=== PATIENT | female | born 1975 | race Caucasian/White ===

== ENCOUNTER 2019-10-12 16:33 | Emergency (ER) | payer MEDICAID, SELFPAY ==
[2019-10-12 16:33] VITALS: BP 123/80; PULSE 91; RESP 15; TEMP 36.8; O2SAT 95; BMI 35.4
--- NOTE | 2019-10-12 16:59 | W.ED.FALL ---
HPI - Fall General: Chief Complaint: Fall Stated Complaint: fall Time Seen by Provider: 10/12/19 16:58 Source: patient and family Mode of arrival: ambulatory Limitations: other (cognitive delay) History of Present Illness: HPI Narrative: pt was with family at [employer] and was reaching on top shelf when on her tippy toes when her L ankle popped and gave out causing her to fall backwards; reports striking her head but no LOC; she complains currently of L ankle pain and neck pain MD complaint: fall Onset (ago): hour(s) Fall from: standing Fall witnessed: yes, by family Place fall occurred: other (grocery store) Loss of consciousness: None Symptoms prior to fall: none Context: other Location of injury: neck Location of injury - extremities: Left: ankle Associated symptoms-after fall: Reports no associated symptoms and neck pain; Denies abdominal pain, chest pain, headache(s) or lightheadedness Review of Systems Const: Denies: fever or chills Card: Denies: chest pain, palpitations, lightheadedness or syncope Resp: Denies: shortness of breath GI: Denies: abdominal pain, nausea, vomiting or diarrhea Musc: Reports: neck pain and joint pain (L ankle) Skin/Breast: Denies: rash Neuro: Denies: headache Psych: Denies: anxiety, depression, visual hallucinations, auditory hallucinations, suicidal ideation or homicidal ideation PFSH ED PFSH: Statuses (acute, chronic, etc) shown below reflect problem list status as previously entered and may not be historically accurate Social History Smoking and tobacco status: never smoked Physical Exam Const: COMMON NORMALS: no apparent distress, oriented x3 and alert GENERAL APPEARANCE: cooperative HENMT: COMMON NORMALS: normocephalic, head/scalp atraumatic, external ears normal, EAC's normal, TM's normal bilaterally and external nose normal HEAD & SCALP: normal to inspection, normocephalic and atraumatic FACE & SINUS: normal facial exam NOSE: external nose normal EXTERNAL EAR: Yes external ears normal EXTERNAL AUDITORY CANAL: EAC's normal TYMPANIC MEMBRANE: TM's normal bilaterally MOUTH: oral and palatal mucosa normal THROAT: posterior oropharynx normal, tonsils normal and uvula midline Eye: COMMON NORMALS: PERRL and EOMs intact bilaterally PUPIL: Yes PERRL Neck/C-Spine: CERVICAL SPINE: Yes collar present (ROM not performed; TTP to mid cervical; no step offs ) Resp: COMMON NORMALS: normal respiratory effort, no retractions, no use of accessory muscles and clear to auscultation bilaterally AUSCULTATION: clear to auscultation bilaterally Cardio: COMMON NORMALS: regular rate and regular rhythm RATE: regular rate RHYTHM: regular rhythm GI: COMMON NORMALS: normal to inspection, nondistended, normoactive bowel sounds, soft to palpation, non-tender, no hepatosplenomegaly and no masses PALPATION: Yes soft and Yes no hepatosplenomegaly Back/Pelvis: COMMON NORMALS: thoracic and lumbar spine normal to inspection Extremity: GENERAL: Yes normal exam except as noted LEFT LOWER EXTREMITY: Yes ankle joint (TTP of lateral malleolus ) Neuro: COMMON NORMALS: oriented x3 SENSORIUM/ORIENTATION: Yes alert Course Vital Signs: Vital signs: Vital Signs Temperature 98.3 F 10/12/19 16:33 Pulse Rate 91 10/12/19 16:33 Respiratory Rate 15 10/12/19 16:33 Blood Pressure 123/80 10/12/19 16:33 Pulse Oximetry 95 10/12/19 16:33 MDM - Fall Imaging Data^: CT Head: Radiologist's impression: [place] [address] CT Scan Report Signed Patient: Marialuisa Diaz MR#: [id number] : 1975 Acct:[id number] Age/Sex: 43 / F ADM Date: 10/12/19 Loc: ER Attending Dr: Ordering Physician: Magy Partida Date of Service: 10/12/19 Procedure(s): CT head wo con* [id number] Accession Number(s): [id number] cc: Magy Partida PROCEDURE INFORMATION: Exam: CT Head Without Contrast Exam date and time: 10/12/2019 5:27 PM Age: 43 years old Clinical indication: Injury or trauma; Fall; Initial encounter; Blunt trauma (contusions or hematomas) TECHNIQUE: Imaging protocol: Computed tomography of the head without contrast. Total DLP: 775.94 mGy-cm Radiation optimization: All CT scans at this facility use at least one of these dose optimization techniques: automated exposure control; mA and/or kV adjustment per patient size (includes targeted exams where dose is matched to clinical indication); or iterative reconstruction. COMPARISON: CT head wo con* [id number] 05/26/2018 9:59 PM FINDINGS: Brain: Normal. No hemorrhage. Unremarkable white matter. No mass effect. Ventricles: Normal. No ventriculomegaly. Bones/joints: Unremarkable. No acute fracture. Sinuses: Visualized sinuses are unremarkable. No fluid levels. Mastoid air cells: Visualized mastoid air cells are well aerated. Soft tissues: Unremarkable. CT/CT head wo con* [id number] IMPRESSION: No acute intracranial abnormality. Radiation Dose CTDIVOL = (mGy): DLP = 775.94 (mGy-cm) Dictated By: Fili Bae MD 10/12/191832 Signed By: Fili Bae MD 10/12/191833 CT cervical: Radiologist's impression: [place] [address] CT Scan Report Signed Patient: Marialuisa Diaz MR#: [id number] : 1975 Acct:[id number] Age/Sex: 43 / F ADM Date: 10/12/19 Loc: ER Attending Dr: Ordering Physician: Magy Partida Date of Service: 10/12/19 Procedure(s): CT cervical spin wo con* [id number] Accession Number(s): [id number] cc: Magy Partida PROCEDURE INFORMATION: Exam: CT Cervical Spine Without Contrast Exam date and time: 10/12/2019 5:27 PM Age: 43 years old Clinical indication: Injury or trauma; Fall; Initial encounter; Blunt trauma TECHNIQUE: Imaging protocol: Computed tomography images of the cervical spine without contrast. Total DLP: 675.5 mGy-cm Radiation optimization: All CT scans at this facility use at least one of these dose optimization techniques: automated exposure control; mA and/or kV adjustment per patient size (includes targeted exams where dose is matched to clinical indication); or iterative reconstruction. COMPARISON: CT Cervical Spine wo* [id number] 05/23/2018 8:08 PM FINDINGS: Bfvd-di-tpmwcvfy degenerative changes are seen in the lower cervical spine. No cervical spine fracture is seen. Spinal alignment is normal. CT/CT cervical spin wo con* [id number] IMPRESSION: No cervical spine fracture. Radiation Dose CTDIVOL = (mGy): DLP = 675.5 (mGy-cm) Dictated By: Fili Bae MD 10/12/191836 Signed By: Fili Bae MD 10/12/191837 L ankle: Radiologist's impression: [address] [address] XRay Report Signed Patient: Marialuisa Diaz MR#: [id number] : 1975 Acct:[id number] Age/Sex: 43 / F ADM Date: 10/12/19 Loc: ER Attending Dr: Ordering Physician: Magy Partida Date of Service: 10/12/19 Procedure(s): XR ankle LT min 3V* [id number] Accession Number(s): [id number] cc: Magy Partida PROCEDURE INFORMATION: Exam: XR Left Ankle Exam date and time: 10/12/2019 5:26 PM Age: 43 years old Clinical indication: Injury or trauma; Fall; Initial encounter; Blunt trauma; Ankle; Left TECHNIQUE: Imaging protocol: XR Left ankle. Views: 3 or more views. COMPARISON: CR Ankle 3 views, LEFT* [id number] 04/16/2019 1:52 PM FINDINGS: Bones/joints: No fracture or dislocation. Soft tissues: Mild soft tissue swelling is seen in the lateral ankle. XR/XR ankle LT min 3V* [id number] IMPRESSION: No fracture or dislocation. Dictated By: Fili Bae MD 10/12/191837 Signed By: Fili Bae MD 10/12/191838 Discharge Plan Discharge Patient Disposition: Home, Self-Care Clinical Impression: Acute neck pain Ankle sprain Qualifiers: Encounter type: initial encounter Involved ligament of ankle: unspecified ligament Laterality: left Qualified Code(s): S93.402A - Sprain of unspecified ligament of left ankle, initial encounter Fall Qualifiers: Encounter type: initial encounter Qualified Code(s): W19.XXXA - Unspecified fall, initial encounter Condition: Stable Discharge Orders: Discharge Order (Routine); Ordered 10/12/19 Ordered By: Magy Partida Referrals: [facility] [Other] Minda Mendosa [Primary Care Provider] - Discharge Activity: Increase activity as tolerated Activity Restrictions/Additional Instructions: Follow up with primary care in a week for continued pain Coding Level of Care Code 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
--- NOTE | 2019-10-12 17:10 | XRR_ITS ---
PROCEDURE INFORMATION: Exam: XR Left Ankle Exam date and time: 10/12/2019 5:26 PM Age: 43 years old Clinical indication: Injury or trauma; Fall; Initial encounter; Blunt trauma; Ankle; Left TECHNIQUE: Imaging protocol: XR Left ankle. Views: 3 or more views. COMPARISON: CR Ankle 3 views, LEFT* [id number] 04/16/2019 1:52 PM FINDINGS: Bones/joints: No fracture or dislocation. Soft tissues: Mild soft tissue swelling is seen in the lateral ankle. XR/XR ankle LT min 3V* [id number] IMPRESSION: No fracture or dislocation.
--- NOTE | 2019-10-12 17:10 | CTR_ITS ---
PROCEDURE INFORMATION: Exam: CT Cervical Spine Without Contrast Exam date and time: 10/12/2019 5:27 PM Age: 43 years old Clinical indication: Injury or trauma; Fall; Initial encounter; Blunt trauma TECHNIQUE: Imaging protocol: Computed tomography images of the cervical spine without contrast. Total DLP: 675.5 mGy-cm Radiation optimization: All CT scans at this facility use at least one of these dose optimization techniques: automated exposure control; mA and/or kV adjustment per patient size (includes targeted exams where dose is matched to clinical indication); or iterative reconstruction. COMPARISON: CT Cervical Spine wo* [id number] 05/23/2018 8:08 PM FINDINGS: Lvej-it-qmzwkjez degenerative changes are seen in the lower cervical spine. No cervical spine fracture is seen. Spinal alignment is normal. CT/CT cervical spin wo con* [id number] IMPRESSION: No cervical spine fracture. Radiation Dose CTDIVOL = (mGy): DLP = 675.5 (mGy-cm)
--- NOTE | 2019-10-12 17:10 | CTR_ITS ---
PROCEDURE INFORMATION: Exam: CT Head Without Contrast Exam date and time: 10/12/2019 5:27 PM Age: 43 years old Clinical indication: Injury or trauma; Fall; Initial encounter; Blunt trauma (contusions or hematomas) TECHNIQUE: Imaging protocol: Computed tomography of the head without contrast. Total DLP: 775.94 mGy-cm Radiation optimization: All CT scans at this facility use at least one of these dose optimization techniques: automated exposure control; mA and/or kV adjustment per patient size (includes targeted exams where dose is matched to clinical indication); or iterative reconstruction. COMPARISON: CT head wo con* [id number] 05/26/2018 9:59 PM FINDINGS: Brain: Normal. No hemorrhage. Unremarkable white matter. No mass effect. Ventricles: Normal. No ventriculomegaly. Bones/joints: Unremarkable. No acute fracture. Sinuses: Visualized sinuses are unremarkable. No fluid levels. Mastoid air cells: Visualized mastoid air cells are well aerated. Soft tissues: Unremarkable. CT/CT head wo con* [id number] IMPRESSION: No acute intracranial abnormality. Radiation Dose CTDIVOL = (mGy): DLP = 775.94 (mGy-cm)
[2019-10-12 19:06] VITALS: BP 107/77; PULSE 73; RESP 16; O2SAT 97
== END 2019-10-12 18:58 | disposition home or self-care (01) ==
PROVIDERS: Emergency Provider Physician Assistant; PCP Nurse Practitioner Family
DX: S93.402A Sprain of unspecified ligament of left ankle, initial encounter (principal); M54.2 Cervicalgia; W18.30XA Fall on same level, unspecified, initial encounter; Y92.512 Supermarket, store or market as the place of occurrence of the external cause
CPT/HCPCS: 70450; 72125; 73610; 99282

== ENCOUNTER → 2019-11-20 12:41 | Outpatient (BNVA) | payer MEDICAID, SELFPAY | PROVIDERS: PCP Nurse Practitioner Family; Visit Provider Nurse Practitioner | DX: F63.81 Intermittent explosive disorder (principal); R41.83 Borderline intellectual functioning; F17.210 Nicotine dependence, cigarettes, uncomplicated | CPT/HCPCS: 99213 ==

== ENCOUNTER 2019-12-09 15:08 | Emergency (ER) | payer MEDICAID, SELFPAY | END 2019-12-09 19:48 | disposition admitted as inpatient to this hospital (09) | LOC: ER 01-07 12:08 | PROVIDERS: Emergency Provider Family Medicine; PCP Nurse Practitioner Family | DX: Z01.89 Encounter for other specified special examinations (principal) ==

== ENCOUNTER 2019-12-09 15:08 | Emergency (ER) | payer MEDICAID, SELFPAY | END 2019-12-09 19:48 | disposition admitted as inpatient to this hospital (09) | LOC: ER 01-07 12:16 | PROVIDERS: Emergency Provider Family Medicine; PCP Nurse Practitioner Family | DX: Z01.89 Encounter for other specified special examinations (principal) | CPT/HCPCS: 36415; 80053; 80306; 80307; 81001; 81025; 83690; 84443; 85025; 96372; 99282; 99285; J2060; J3486 ==

== ENCOUNTER 2019-12-09 15:08 | Inpatient (IN) | payer MEDICAID, SELFPAY ==
[2019-12-09 15:13] VITALS: BP 116/81; PULSE 106; RESP 25; TEMP 36.8; O2SAT 97
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
[2019-12-09 15:28] LABS: Basophils % 0.2 %; Eosinophils # 0.1 10^3/uL (0.0-0.8); Eosinophils % 0.7 %; Hemoglobin 13.1 g/dL (11.5-15.3); Lymphocytes # 1.9 10^3/uL (0.8-4.8); Lymphocytes % 23.1 %; Mean Corpuscular Hemoglobin 29.4 pg (28.0-34.0); Mean Corpuscular Volume 91.9 fL (81-99); Mean Platelet Volume 10.2 fL (7.4-10.4); Monocytes # 0.5 10^3/uL (0.2-0.9); Monocytes % 6.7 %; Neutrophils # 5.6 10^3/uL (1.8-7.7); Neutrophils % 69.1 %; Nucleated Red Blood Cells % 0 %; Platelet Count 290 10^3/cmm (130-400); Red Blood Count 4.46 10^6/uL (4.1-5.3); Red Cell Distribution Width 13.2 % (12.1-15.1); White Blood Count 8.1 10^3/uL (4.0-10.0)
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
[2019-12-09 15:59] LABS: Alanine Aminotransferase 16 U/L (0-33); Albumin Level 3.5 g/dL (3.5-5.2); Alkaline Phosphatase 154 IU/L (35-105); Anion Gap 18.2 (5-19); Aspartate Amino Transferase 22 U/L (0-32); Blood Urea Nitrogen 6 mg/dL (6-20); Calcium 9.6 mg/dL (8.5-10.5); Carbon Dioxide 20 mmol/L (22-29); Chloride 98 mmol/L (98-107); Globulin 3.6 g/dL (1.3-4.6); Glucose 131 mg/dL (65-115); Lipase 18 U/L (13-60); Potassium 4.2 mmol/L (3.5-5.1); Sodium 132 mmol/L (136-145); Total Bilirubin 0.2 mg/dL (0.15-1.2); Total Protein 7.1 g/dL (6.6-8.7)
[2019-12-09 16:14] LABS: HCG Qualitative Urine. Negative (Negative)
[2019-12-09 16:33] LABS: Thyroid Stimulating Hormone 0.61 uIU/mL (0.27-4.20)
[2019-12-09] MEDS: LORazepam 2 mg/mL INJ 1 mL IM (16:38)
[2019-12-09 16:49] LABS: Acetaminophen < 5.0 ug/mL (10-30); Alcohol Level < 10 mg/dL (0-10); Salicylate < 0.3 mg/dL (3-10)
[2019-12-09 17:04] LABS: Bilirubin Urine Neg (NEGATIVE); Blood Urine Neg (Negative); Glucose Urine UA Norm (Normal); Ketones Urine Negative (Negative); Leukocyte Esterase Urine Negative (Negative); Nitrate Urine Negative (Negative); Protein Urine Neg (Negative); Specific Gravity, Urine 1.005 (1.005-1.030); Urine Appearance SL Hazy (CLEAR); Urine Color Yellow (Yellow); Urobilinogen Urine Norm (Negative); pH Urine 6 (5-7)
[2019-12-09 17:05] LABS: Add Urine Microscopic? YES
[2019-12-09 17:06] LABS: Bacteria Urine TRACE; Hyaline Casts Urine 0-4; WBC Urine 0-4 /hpf (0-5)
[2019-12-09] MEDS: ziprasidone 20 mg/mL SDV IM (17:22)
[2019-12-09 17:41] LABS: Amphetamines Screen Urine Negative (Negative); Barbiturates Screen Urine Negative (Negative); Benzodiazepines Screen Urine Negative (Negative); Cocaine Screen Urine Negative (Negative); Opiate Screen Urine Negative (Negative); PCP Screen Urine Negative (Negative); THC Screen Urine Negative (Negative)
--- NOTE | 2019-12-09 19:00 | PC.NURSE ---
report received from BIJU Gray and care transferred to BIJU Garcia
--- NOTE | 2019-12-09 19:10 | PC.NURSE ---
tried to call report to [facility] but was told the nurse was not around and they would call me back
[2019-12-09 19:37] VITALS: BP 128/104; PULSE 74; RESP 16; O2SAT 96
[2019-12-09] MEDS: mirtazapine 15 mg Tablet PO (20:43)
[2019-12-09] MEDS: CLONazepam 1 mg Tablet PO (20:43)
[2019-12-09] MEDS: nicotine 2 mg Gum BUCCAL (20:47)
[2019-12-09 21:57] VITALS: BP 100/70; PULSE 90; RESP 20; TEMP 36.4; O2SAT 97
[2019-12-10 06:00] VITALS: BP 100/65; PULSE 91; RESP 20; TEMP 36.5; O2SAT 99
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
[2019-12-10] MEDS: haloperidol 5 mg Tablet PO ×2 (13:01→16:40)
[2019-12-10] MEDS: CLONazepam 1 mg Tablet PO (13:01)
--- NOTE | 2019-12-10 13:53 | PC.NURSE ---
PATIENT YELLING DOWN THE CORTES, TRYING TO GET INTO THE NURSES STATION, STATING I JUST WANT TO SEE MY MOM FOR MY BIRTHDAY TUESDAY! PATIENT IS MENTALLY DISABLED, REDIRECTED AND MEDICATED WITH CLONAZEPAM 1MG AND HALDOL 5MG PO. PATIENT WAS ABLE TO BE DE-ESCALATED AND TOOK MEDICATION WITHOUT DIFFICULTY. WILL CONT TO MONITOR,SUPPORT AND RE-DIRECT NEEDED.
[2019-12-10 14:00] VITALS: RESP 20
--- NOTE | 2019-12-10 15:36 | PC.NURSE ---
PRN EFFECTIVE. PATIENT. PATIENT HAS CALMED AND IS INTERACTING WELL WITH STAFF AND PEERS. WILL CONT TO MONITOR
[2019-12-10] MEDS: nicotine 2 mg Gum BUCCAL (16:40)
--- NOTE | 2019-12-10 17:02 | PC.NURSE ---
Patient refused vital signs.
[2019-12-10] MEDS: metoprolol tartrate 25 mg Tablet PO (17:27)
[2019-12-10] MEDS: benztropine 1 mg Tablet PO (17:27)
[2019-12-10] MEDS: escitalopram 10 mg Tablet 20 MG PO (17:27)
[2019-12-10] MEDS: lurasidone 80 mg Tablet 160 MG PO (17:28)
[2019-12-10] MEDS: levothyroxine 50 mcg Tablet PO (17:28)
[2019-12-10 21:49] VITALS: RESP 16
[2019-12-11] MEDS: mirtazapine 15 mg Tablet PO ×2 (00:30→21:30)
[2019-12-11 06:00] VITALS: BP 118/86; PULSE 75; RESP 17; TEMP 36.7; O2SAT 98
[2019-12-11] MEDS: lurasidone 80 mg Tablet 160 MG PO (09:31)
[2019-12-11] MEDS: benztropine 1 mg Tablet PO ×2 (09:31→17:40)
[2019-12-11] MEDS: levothyroxine 50 mcg Tablet PO (09:31)
[2019-12-11] MEDS: escitalopram 10 mg Tablet 20 MG PO (09:31)
[2019-12-11] MEDS: metoprolol tartrate 25 mg Tablet PO ×2 (09:31→17:40)
[2019-12-11] MEDS: haloperidol 5 mg Tablet PO ×2 (11:30→17:40)
[2019-12-11] MEDS: CLONazepam 0.5 mg Tablet PO (11:30)
--- NOTE | 2019-12-11 11:30 | PC.NURSE ---
PRN HALDOL HALDOL 5MG PO FOR AGITATION. WILL CONTINUE TO MONITOR FOR MEDICATION EFFECTIVENESS.
--- NOTE | 2019-12-11 11:30 | PC.NURSE ---
PRN KLONOPIN KLONOPIN 0.5MG PO FOR ANXIETY. WILL CONTINUE TO MONITOR FOR MEDICATION EFFECTIVENESS.
--- NOTE | 2019-12-11 12:30 | PC.NURSE ---
PRN AMBAR FOLLOW UP MEDICATION SOMEWHAT EFFECTIVE. PATIENT STILL HAS SOME ANXIETY.
--- NOTE | 2019-12-11 12:30 | PC.NURSE ---
PRN HALDOL FOLLOW UP MEDICATION SOMEWHAT EFFECTIVE. PATIENT STILL HAS OUTBURST OF AGITATION.
--- NOTE | 2019-12-11 12:41 | P.PN_ITS ---
Subjective NPU Subjective: Interval history: Marialuisa presents today endorsing desire to go home and not be put in a shelter. We discussed the fact that we would work with her and her guardian to find the appropriate discharge plan. We reviewed a documented this morning given by her guardian, they gave an accounting of her placement history going back to 2001. We discussed the importance of her managing her behaviors and the fact that we are making adjustments to medication to try to assist her in handling stressful situations. She is eating and sleeping well. Mental Status Exam MSE Comments: This is an obese white female with adequate dress limited grooming and eye contact. No abnormal movements. No dentition. Mostly cooperative with exam and occasional mild distress. Speech was childlike and decreased rate and volume. Mood described as I want to go home, affect shy. Thought process linear. Thought content: Patient denied any suicidal or homicidal ideation, there were no delusions reported or noted, she denied any auditory visual hallucinations. Her cognitive and intellectual abilities are clearly delayed and impaired. Attention and concentration were intact and memory was unreliable but none were formally tested. She is alert and oriented x3. Insight and judgment are limited. And impulse control is limited. Vitals/I&O/Wt Last Vital Signs Temp 98.0 F 12/11/19 06:00 Pulse 75 12/11/19 06:00 Resp 17 12/11/19 06:00 BP 118/86 12/11/19 06:00 Pulse Ox 98 12/11/19 06:00 Weight last 48 hrs Weight 82.024 kg Home Medications benztropine 1 mg tablet 1 mg PO BID #60 tab 11/20/19 [Rx Confirmed 12/09/19] clonazepam 0.5 mg tablet 0.5 mg PO BID PRN #60 tab 11/20/19 [Rx Confirmed 12/09/19] escitalopram oxalate 20 mg tablet 20 mg PO DAILY #30 tab 11/20/19 [Rx Confirmed 12/09/19] lacosamide 100 mg tablet 100 mg PO BID 11/20/19 [History Confirmed 12/09/19] lurasidone 80 mg tablet 160 mg PO DAILY #30 tab 11/20/19 [Rx Confirmed 12/09/19] metoprolol tartrate 25 mg tablet 25 mg PO BID 11/20/19 [History Confirmed 12/09/19] Remeron 15 mg PO BEDTIME 12/09/19 [History Confirmed 12/09/19] levothyroxine 50 mcg PO DAILY 12/09/19 [History Confirmed 12/09/19] magnesium 500 mg PO DAILY 12/09/19 [History Confirmed 12/09/19] Active Medications Acetaminophen (Tylenol) 650 mg PO Q4H PRN PRN Reason: MILD PAIN Benztropine Mesylate (Cogentin) 1 mg PO BID PRN PRN Reason: Mild Extrapyramidal symptoms Benztropine Mesylate (Cogentin) 1 mg PO BID [facility] Last Admin: 12/11/19 09:31 Dose: 1 mg Documented by: Camphor/Menthol/Phenol (Blistex) 1 applic TOPICAL Q1H PRN PRN Reason: DRYNESS Clonazepam (Klonopin) 0.5 mg PO BID PRN PRN Reason: anxiety Last Admin: 12/11/19 11:30 Dose: 0.5 mg Documented by: Diphenhydramine HCl (Benadryl) 50 mg IM ONCE PRN PRN Reason: Severe Extrapyramidal Symptoms Diphenhydramine HCl (Benadryl) 50 mg IM Q4H PRN PRN Reason: Severe Aggression Escitalopram Oxalate (Lexapro) 20 mg PO DAILY [facility] Last Admin: 12/11/19 09:31 Dose: 20 mg Documented by: Haloperidol (Haldol) 5 mg PO Q4H PRN PRN Reason: AGITATION Last Admin: 12/11/19 11:30 Dose: 5 mg Documented by: Haloperidol (Haldol) 5 mg PO BID [facility] Haloperidol Lactate (Haldol Inj) 5 mg IM Q4H PRN PRN Reason: Severe Aggression Hydroxyzine Pamoate (Vistaril) 50 mg PO Q6H PRN PRN Reason: ANXIETY Levothyroxine Sodium (Synthroid) 50 mcg PO DAILY [facility] Last Admin: 12/11/19 09:31 Dose: 50 mcg Documented by: Loperamide HCl (Imodium Capsule) 2 mg PO Q6H PRN PRN Reason: DIARRHEA Lorazepam (Ativan) 2 mg IM Q4H PRN PRN Reason: Severe Aggression Lurasidone HCl (Latuda) 160 mg PO DAILY [facility] Last Admin: 12/11/19 09:31 Dose: 160 mg Documented by: Metoprolol Tartrate (Lopressor) 25 mg PO BID [facility] Last Admin: 12/11/19 09:31 Dose: 25 mg Documented by: Mirtazapine (Remeron) 15 mg PO BEDTIME [facility] Nicotine (Nicoderm 21 Mg Patch) 1 patch TRANSDERMA DAILY PRN PRN Reason: NICOTINE WITHDRAWAL Nicotine Polacrilex (Nicorette) 2 mg BUCCAL Q2H PRN PRN Reason: NICOTINE WITHDRAWAL Last Admin: 12/10/19 16:40 Dose: 2 mg Documented by: Olanzapine (Zyprexa Zydis) 5 mg PO Q4H PRN PRN Reason: Agitation/Psychosis Ondansetron HCl (Zofran) 4 mg PO Q6H PRN PRN Reason: NAUSEA AND VOMITING Trazodone HCl (Desyrel) 50 mg PO BEDTIME PRN PRN Reason: SLEEP Data NPU : 12/09/19 15:22 12/09/19 15:22 A&P Additional A&P Information This is a 43-year-old white female with moderate intellectual disability and 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 1. Continue current medications. Except start Haldol 5 mg by mouth twice a day 2. Encourage individual, group and milieu therapy. 3. Discontinue one-to-one and start every 15 minute observation. 4. We will work with family to determine an appropriate discharge plan however the guardians position that now with no warning they have determined that she cannot return home is inappropriate and we will work with them to figure out how to have a transition that allows for safety but is not putting the hospital in a position that we now are responsible for finding placement and the guardian should be aware of that who is no longer the mother by [place] appoin[place]. Involuntary Hold Information 96 Hour Hold: 96 Hour Involuntary Admission: Yes 96 Hour Hold Ending Date: 12/13/19 96 Hour Hold Ending Time: 18:42 Attestations NPU Medical Necessity Statement*: Inpatient hospitalization is medically necessary and the clinically appropriate intervention at this time. We will monitor medications and make changes as indicated. Likely length of stay 2-4 days. Coding Level of Care Code Acute Water Treatment Plant Operator for Shelton Mercado
[2019-12-11 14:00] VITALS: BP 101/68; PULSE 88; RESP 20; TEMP 36.6; O2SAT 98
[2019-12-11] MEDS: hyDROXYzine 25 mg Capsule 50 MG PO (18:06)
--- NOTE | 2019-12-11 18:06 | PC.NURSE ---
Addendum entered by Suyapa Reyna LPN 12/11/19 18:46: MEDICATION EFFECTIVE. PATIENT CALM AND COOPERATIVE. NO FURTHER C/O ANXIETY. Original Note: PRN VISTARIL VISTARIL 50MG PO PER PATIENT C/O ANXIETY. WILL CONTINUE TO MONITOR FOR MEDICATION EFFECTIVENESS.
[2019-12-11 22:00] VITALS: BP 107/73; PULSE 74; RESP 18; TEMP 36.6; O2SAT 97
[2019-12-12 06:00] VITALS: RESP 17
[2019-12-12 06:51] VITALS: BP 112/11; PULSE 98; RESP 17; TEMP 36.5; O2SAT 99
[2019-12-12] MEDS: benztropine 1 mg Tablet PO ×2 (09:47→18:01)
[2019-12-12] MEDS: metoprolol tartrate 25 mg Tablet PO ×2 (09:48→18:00)
[2019-12-12] MEDS: escitalopram 10 mg Tablet 20 MG PO (09:48)
[2019-12-12] MEDS: lurasidone 80 mg Tablet 160 MG PO (09:48)
[2019-12-12] MEDS: haloperidol 5 mg Tablet PO ×2 (09:48→18:01)
[2019-12-12] MEDS: levothyroxine 50 mcg Tablet PO (09:49)
--- NOTE | 2019-12-12 10:50 | P.PN_ITS ---
Subjective NPU Subjective: Interval history: Marialuisa presents today reporting that things are going better however she continues to be focused and more less obsessed with going home. She has some issues with personal space and being focused on other people's issues. She does seem to be getting better in regards to being more easily redirected and being less explosive or have any signs of aggression. She continues to focus on wanting to be home by Tuesday for her birthday. She is eating and sleeping well. Mental Status Exam MSE Comments: This is an obese white female with adequate dress limited grooming and eye contact. No abnormal movements. No dentition. Mostly cooperative with exam in no acute distress. Speech was childlike and normal rate and volume. Mood described as better, affect shy. Thought process linear. Thought content: Patient denied any suicidal or homicidal ideation, there were no delusions reported or noted, she denied any auditory visual hallucinations. Her cognitive and intellectual abilities are clearly delayed and impaired. Attention and concentration were intact and memory was unreliable but none were formally tested. She is alert and oriented x3. Insight and judgment are limited. And impulse control is limited but improving. Vitals/I&O/Wt Last Vital Signs Temp 97.8 F 12/12/19 22:00 Pulse 82 12/12/19 22:00 Resp 16 12/12/19 22:00 BP 111/79 12/12/19 22:00 Pulse Ox 97 12/12/19 22:00 Home Medications benztropine 1 mg tablet 1 mg PO BID #60 tab 11/20/19 [Rx Confirmed 12/09/19] clonazepam 0.5 mg tablet 0.5 mg PO BID PRN #60 tab 11/20/19 [Rx Confirmed 12/09/19] escitalopram oxalate 20 mg tablet 20 mg PO DAILY #30 tab 11/20/19 [Rx Confirmed 12/09/19] lacosamide 100 mg tablet 100 mg PO BID 11/20/19 [History Confirmed 12/09/19] lurasidone 80 mg tablet 160 mg PO DAILY #30 tab 11/20/19 [Rx Confirmed 12/09/19] metoprolol tartrate 25 mg tablet 25 mg PO BID 11/20/19 [History Confirmed 12/09/19] Remeron 15 mg PO BEDTIME 12/09/19 [History Confirmed 12/09/19] levothyroxine 50 mcg PO DAILY 12/09/19 [History Confirmed 12/09/19] magnesium 500 mg PO DAILY 12/09/19 [History Confirmed 12/09/19] Active Medications Acetaminophen (Tylenol) 650 mg PO Q4H PRN PRN Reason: MILD PAIN Benztropine Mesylate (Cogentin) 1 mg PO BID PRN PRN Reason: Mild Extrapyramidal symptoms Benztropine Mesylate (Cogentin) 1 mg PO BID [facility] Last Admin: 12/12/19 18:01 Dose: 1 mg Documented by: Camphor/Menthol/Phenol (Blistex) 1 applic TOPICAL Q1H PRN PRN Reason: DRYNESS Clonazepam (Klonopin) 0.5 mg PO BID PRN PRN Reason: anxiety Last Admin: 12/12/19 11:43 Dose: 0.5 mg Documented by: Diphenhydramine HCl (Benadryl) 50 mg IM ONCE PRN PRN Reason: Severe Extrapyramidal Symptoms Diphenhydramine HCl (Benadryl) 50 mg IM Q4H PRN PRN Reason: Severe Aggression Escitalopram Oxalate (Lexapro) 20 mg PO DAILY [facility] Last Admin: 12/12/19 09:48 Dose: 20 mg Documented by: Haloperidol (Haldol) 5 mg PO Q4H PRN PRN Reason: AGITATION Last Admin: 12/11/19 11:30 Dose: 5 mg Documented by: Haloperidol (Haldol) 5 mg PO BID [facility] Last Admin: 12/12/19 18:01 Dose: 5 mg Documented by: Haloperidol Lactate (Haldol Inj) 5 mg IM Q4H PRN PRN Reason: Severe Aggression Hydroxyzine Pamoate (Vistaril) 50 mg PO Q6H PRN PRN Reason: ANXIETY Last Admin: 12/11/19 18:06 Dose: 50 mg Documented by: Levothyroxine Sodium (Synthroid) 50 mcg PO DAILY [facility] Last Admin: 12/12/19 09:49 Dose: 50 mcg Documented by: Loperamide HCl (Imodium Capsule) 2 mg PO Q6H PRN PRN Reason: DIARRHEA Lorazepam (Ativan) 2 mg IM Q4H PRN PRN Reason: Severe Aggression Lurasidone HCl (Latuda) 160 mg PO DAILY [facility] Last Admin: 12/12/19 09:48 Dose: 160 mg Documented by: Metoprolol Tartrate (Lopressor) 25 mg PO BID [facility] Last Admin: 12/12/19 18:00 Dose: 25 mg Documented by: Mirtazapine (Remeron) 15 mg PO BEDTIME [facility] Last Admin: 12/12/19 21:41 Dose: 15 mg Documented by: Nicotine (Nicoderm 21 Mg Patch) 1 patch TRANSDERMA DAILY PRN PRN Reason: NICOTINE WITHDRAWAL Nicotine Polacrilex (Nicorette) 2 mg BUCCAL Q2H PRN PRN Reason: NICOTINE WITHDRAWAL Last Admin: 12/10/19 16:40 Dose: 2 mg Documented by: Olanzapine (Zyprexa Zydis) 5 mg PO Q4H PRN PRN Reason: Agitation/Psychosis Ondansetron HCl (Zofran) 4 mg PO Q6H PRN PRN Reason: NAUSEA AND VOMITING Trazodone HCl (Desyrel) 50 mg PO BEDTIME PRN PRN Reason: SLEEP Data NPU : 12/09/19 15:22 12/09/19 15:22 A&P Additional A&P Information This is a 43-year-old white female with moderate intellectual disability and 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 1. Continue current medications. 2. Encourage individual, group and milieu therapy. 3. Continue every 15 minute observations. 4. We will continue to work with her guardian on discharge planning but the plan at this point is to get her aggressiveness under control and discharged to home so that they can find whatever the next option is. Involuntary Hold Information 96 Hour Hold: 96 Hour Involuntary Admission: Yes 96 Hour Hold Ending Date: 12/13/19 96 Hour Hold Ending Time: 18:42 Attestations NPU Medical Necessity Statement*: Inpatient hospitalization is medically necessary and the clinically appropriate intervention at this time. We will monitor medications and make changes as indicated. Likely length of stay 2-3 days. Coding Level of Care Code Acute Supervisor Power Reactor for Shelton Mercado
[2019-12-12] MEDS: CLONazepam 0.5 mg Tablet PO (11:43)
[2019-12-12 13:57] VITALS: BP 108/69; PULSE 81; RESP 18; TEMP 36.3; O2SAT 98
[2019-12-12] MEDS: mirtazapine 15 mg Tablet PO (21:41)
--- NOTE | 2019-12-12 21:45 | PC.NURSE ---
HS med remeron given
[2019-12-12 22:00] VITALS: BP 111/79; PULSE 82; RESP 16; TEMP 36.6; O2SAT 97
[2019-12-13 06:00] VITALS: RESP 18
[2019-12-13 06:39] VITALS: BP 109/75; PULSE 85; RESP 18; TEMP 36.6; O2SAT 97
[2019-12-13] MEDS: escitalopram 10 mg Tablet 20 MG PO (08:50)
[2019-12-13] MEDS: lurasidone 80 mg Tablet 160 MG PO (08:50)
[2019-12-13] MEDS: haloperidol 5 mg Tablet PO ×2 (08:51→17:29)
[2019-12-13] MEDS: metoprolol tartrate 25 mg Tablet PO ×2 (08:51→17:28)
[2019-12-13] MEDS: levothyroxine 50 mcg Tablet PO (08:51)
[2019-12-13] MEDS: benztropine 1 mg Tablet PO ×2 (08:52→17:30)
[2019-12-13] MEDS: CLONazepam 0.5 mg Tablet PO (12:15)
--- NOTE | 2019-12-13 12:16 | PM.NPN ---
Subjective NPU Subjective: Interval history: Marialuisa presents today reporting that she is excited about her birthday tomorrow and wants to discharge soon. Staff reported that she is continuing to show improvement and need less redirection, less need for as needed medications. She is eating and sleeping fine and certainly has her quirks but all things considered is showing marked improvement from admission. Mental Status Exam MSE Comments: This is an obese, white female, with adequate dress, grooming, and eye contact. No abnormal movements. No dentition. Cooperative with exam in no acute distress. Speech was child-like and normal rate and volume with dysarthria likely secondary to her absent dentition. Mood described as happy/I am doing good; affect congruent. Thought process, linear. She is clearly delayed and impaired. Thought content: patient denied any suicidal or homicidal ideation, there were no delusions reported or noted, patient denied any auditory or visual hallucinations. Attention, concentration, and memory appeared intact but were not formally tested. Alert and oriented times three. Insight and judgment are improving and impulse control is improving. Vitals/I&O/Wt Last Vital Signs Temperature 97.7, pulse 76, respirations 18, pulse ox 96% and blood pressure 110/73. Data NPU : 12/09/19 15:22 12/09/19 15:22 A&P Additional A&P Information This is a 43-year-old white female with moderate intellectual disability and 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 1. Continue current medications. 2. Encourage individual, group and milieu therapy. 3. Continue every 15 minute observations. 4. We will continue to work with her guardian on discharge planning but the plan at this point is to get her aggressiveness under control and discharged to home so that they can find whatever the next option is. Involuntary Hold Information 96 Hour Hold: 96 Hour Involuntary Admission: Yes 96 Hour Hold Ending Date: 12/13/19 96 Hour Hold Ending Time: 18:42 Attestations NPU Medical Necessity Statement*: Inpatient hospitalization is medically necessary and the clinically appropriate intervention at this time. We will monitor medications and make changes as indicated. Likely length of stay 1-2 days. Coding Level of Care Code Acute Dean Of Instruction for Shelton Mercado
[2019-12-13 14:00] VITALS: BP 110/73; PULSE 76; RESP 18; TEMP 36.5; O2SAT 96
--- NOTE | 2019-12-13 18:22 | PC.NURSE ---
YOUTH PROGRAM DIRECTOR PLACED A PHONE CALL TO HAZEL SOLIS TO RETURN CALL TO [facility] .
[2019-12-13 20:26] VITALS: BP 99/67; PULSE 73; RESP 19; TEMP 36.3; O2SAT 96
[2019-12-13] MEDS: mirtazapine 15 mg Tablet PO (20:36)
[2019-12-13] MEDS: trazodone 50 mg Tablet PO (23:01)
[2019-12-14 05:52] VITALS: BP 129/85; PULSE 83; RESP 19; TEMP 36.9; O2SAT 97
[2019-12-14] MEDS: benztropine 1 mg Tablet PO ×2 (08:43→17:35)
[2019-12-14] MEDS: haloperidol 5 mg Tablet PO ×2 (08:44→17:35)
[2019-12-14] MEDS: lurasidone 80 mg Tablet 160 MG PO (08:44)
[2019-12-14] MEDS: escitalopram 10 mg Tablet 20 MG PO (08:44)
[2019-12-14] MEDS: metoprolol tartrate 25 mg Tablet PO ×2 (08:45→17:35)
[2019-12-14] MEDS: levothyroxine 50 mcg Tablet PO (08:46)
[2019-12-14] MEDS: hyDROXYzine 25 mg Capsule 50 MG PO (09:19)
--- NOTE | 2019-12-14 09:44 | P.PN_ITS ---
Subjective NPU Subjective: Interval history: The patient presents today pretty excited, it is her birthday and she is happy about being 44 years old. She is responding well to the medication and makes it a point to talk to the staff about the things that she is doing better, which are true. She is not escalating, even though there were concerns about it being her birthday and pressing her desire to be at home on her birthday, and that that would turn into an episode, but it just has not. She is doing a really good job of hearing what is being asked of her and doing what is needed to be a good citizen on the unit. We had a significant discussion about her situation and how, even though we feel that she is ready to be discharged, at this time, that given her parents? age, and all other things considered, that her having a place of residence where she lives and is growing accustomed to, and her family being a support, and even a place she could go on weekends, so that she will be as independent as possible, when the parents really can not manage her, is the best option for her. She has seemingly become more open to some sort of placement, although she also talked some about indepen dence. She is eating and sleeping well. Mental Status Exam MSE Comments: This is an obese, white female, with adequate dress, grooming, and eye contact. No abnormal movements. Cooperative with exam in no acute distress. Speech was decreased rate, normal volume, and childlike. Mood described as good; affect euthymic. Thought process, organized. Thought content: patient denied any suicidal or homicidal ideation, there were no delusions reported or noted, she denied any auditory or visual hallucinations. Attention and concentration are intact, and memory is becoming more reliable, but none were formally tested. She is alert and oriented times three. Insight and judgment are improving. Impulse control is improving. Vitals/I&O/Wt Last Vital Signs Temperature 98.4, pulse 83, respirations 19, pulse ox 97%, blood pressure 129/85. Data NPU : 12/09/19 15:22 12/09/19 15:22 A&P Additional A&P Information This is a 43-year-old white female with moderate intellectual disability and 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 1. Continue current medications. 2. Encourage individual, group and milieu therapy. 3. Continue every 15 minute observations. 4. We will continue to work with her guardian on discharge planning and discharged to home so that they can find whatever the next option is. Involuntary Hold Information 96 Hour Hold: 96 Hour Involuntary Admission: Yes 96 Hour Hold Ending Date: 12/13/19 96 Hour Hold Ending Time: 18:42 Attestations NPU Medical Necessity Statement*: Inpatient hospitalization is medically necessary and the clinically appropriate intervention at this time. We will monitor medications and make changes as indicated. Likely length of stay 2-3 days.guardian refusing to take back from hospital. Coding Level of Care Code Acute Reprographics Technician for Shelton Mercado
[2019-12-14] MEDS: ondansetron 4 MG Tablet PO (12:04)
[2019-12-14 14:00] VITALS: BP 102/72; PULSE 73; RESP 18; TEMP 36.6; O2SAT 97
--- NOTE | 2019-12-14 14:00 | PC.SOCIAL ---
Level 2 Update: Paz with [facility] ([phone]) will call Tuesday, December 17, 2019 at 10:00am to do a phone update with charge nurse Altagracia. She will not need to speak to the patient. [facility] mello has had a level 2 interview done more recently she does not need to come on site for an interview.
[2019-12-14] MEDS: CLONazepam 0.5 mg Tablet PO (16:25)
[2019-12-14 20:15] VITALS: BP 121/84; PULSE 73; RESP 19; TEMP 36.5; O2SAT 96
[2019-12-14] MEDS: OLANZapine ODT 5 MG TABLET PO (20:21)
[2019-12-14] MEDS: mirtazapine 15 mg Tablet PO (20:21)
--- NOTE | 2019-12-14 20:23 | PC.NURSE ---
hs meds given
[2019-12-15] MEDS: blistex lip oint 7 gm Tube 1 APPLIC TOPICAL (05:17)
[2019-12-15 05:53] VITALS: BP 117/77; PULSE 80; RESP 17; O2SAT 98
[2019-12-15] MEDS: benztropine 1 mg Tablet PO ×2 (08:29→17:29)
[2019-12-15] MEDS: haloperidol 5 mg Tablet PO ×2 (08:30→17:30)
[2019-12-15] MEDS: escitalopram 10 mg Tablet 20 MG PO (08:30)
[2019-12-15] MEDS: lurasidone 80 mg Tablet 160 MG PO (08:31)
[2019-12-15] MEDS: levothyroxine 50 mcg Tablet PO (08:31)
[2019-12-15] MEDS: metoprolol tartrate 25 mg Tablet PO ×2 (08:31→17:29)
[2019-12-15] MEDS: hyDROXYzine 25 mg Capsule 50 MG PO ×2 (09:57→18:34)
--- NOTE | 2019-12-15 11:45 | P.PN_ITS ---
Subjective NPU Subjective: Interval history: The patient presents today continuing to do well and function well on the unit. She continues to have some boundary issues that are consistent with a person of her limited intellectual ability. She is very childlike and people recognize that is what is going on when she is intrusive, but it is generally redirectable now, and it is not causing any problems on the unit. She is eating and sleeping well. Mental Status Exam MSE Comments: This is an obese, white female, with adequate dress, grooming, and eye contact. No abnormal movements. Cooperative with exam in no acute distress. Speech was normal rate and volume, and childlike with dysarthria. Mood described as good; affect congruent. Thought process, linear. Thought content: patient denied any suicidal or homicidal ideation, there were no delusions reported or noted, patient denied any auditory or visual hallucinations. Attention and concentration are intact, and memory is unreliable, but none were formally tested. She is alert and oriented times three. Insight and judgment are impaired and impulse control is improving. Cognitive functioning is impaired. Vitals/I&O/Wt Last Vital Signs Temp 97.7 F 12/14/19 20:15 Pulse 80 12/15/19 05:53 Resp 17 12/15/19 05:53 BP 117/77 12/15/19 05:53 Pulse Ox 98 12/15/19 05:53 Home Medications benztropine 1 mg tablet 1 mg PO BID #60 tab 11/20/19 [Rx Confirmed 12/09/19] clonazepam 0.5 mg tablet 0.5 mg PO BID PRN #60 tab 11/20/19 [Rx Confirmed 12/09/19] escitalopram oxalate 20 mg tablet 20 mg PO DAILY #30 tab 11/20/19 [Rx Confirmed 12/09/19] lacosamide 100 mg tablet 100 mg PO BID 11/20/19 [History Confirmed 12/09/19] lurasidone 80 mg tablet 160 mg PO DAILY #30 tab 11/20/19 [Rx Confirmed 12/09/19] metoprolol tartrate 25 mg tablet 25 mg PO BID 11/20/19 [History Confirmed 12/09/19] Remeron 15 mg PO BEDTIME 12/09/19 [History Confirmed 12/09/19] levothyroxine 50 mcg PO DAILY 12/09/19 [History Confirmed 12/09/19] magnesium 500 mg PO DAILY 12/09/19 [History Confirmed 12/09/19] Active Medications Acetaminophen (Tylenol) 650 mg PO Q4H PRN PRN Reason: MILD PAIN Benztropine Mesylate (Cogentin) 1 mg PO BID PRN PRN Reason: Mild Extrapyramidal symptoms Benztropine Mesylate (Cogentin) 1 mg PO BID [facility] Last Admin: 12/15/19 17:29 Dose: 1 mg Documented by: Camphor/Menthol/Phenol (Blistex) 1 applic TOPICAL Q1H PRN PRN Reason: DRYNESS Last Admin: 12/15/19 05:17 Dose: 1 applic Documented by: Diphenhydramine HCl (Benadryl) 50 mg IM ONCE PRN PRN Reason: Severe Extrapyramidal Symptoms Diphenhydramine HCl (Benadryl) 50 mg IM Q4H PRN PRN Reason: Severe Aggression Escitalopram Oxalate (Lexapro) 20 mg PO DAILY [facility] Last Admin: 12/15/19 08:30 Dose: 20 mg Documented by: Haloperidol (Haldol) 5 mg PO Q4H PRN PRN Reason: AGITATION Last Admin: 12/11/19 11:30 Dose: 5 mg Documented by: Haloperidol (Haldol) 5 mg PO BID [facility] Last Admin: 12/15/19 17:30 Dose: 5 mg Documented by: Haloperidol Lactate (Haldol Inj) 5 mg IM Q4H PRN PRN Reason: Severe Aggression Hydroxyzine Pamoate (Vistaril) 50 mg PO Q6H PRN PRN Reason: ANXIETY Last Admin: 12/15/19 18:34 Dose: 50 mg Documented by: Levothyroxine Sodium (Synthroid) 50 mcg PO DAILY [facility] Last Admin: 12/15/19 08:31 Dose: 50 mcg Documented by: Loperamide HCl (Imodium Capsule) 2 mg PO Q6H PRN PRN Reason: DIARRHEA Lurasidone HCl (Latuda) 160 mg PO DAILY [facility] Last Admin: 12/15/19 08:31 Dose: 160 mg Documented by: Metoprolol Tartrate (Lopressor) 25 mg PO BID [facility] Last Admin: 12/15/19 17:29 Dose: 25 mg Documented by: Mirtazapine (Remeron) 15 mg PO BEDTIME [facility] Last Admin: 12/15/19 20:18 Dose: 15 mg Documented by: Nicotine (Nicoderm 21 Mg Patch) 1 patch TRANSDERMA DAILY PRN PRN Reason: NICOTINE WITHDRAWAL Nicotine Polacrilex (Nicorette) 2 mg BUCCAL Q2H PRN PRN Reason: NICOTINE WITHDRAWAL Last Admin: 12/10/19 16:40 Dose: 2 mg Documented by: Olanzapine (Zyprexa Zydis) 5 mg PO Q4H PRN PRN Reason: Agitation/Psychosis Last Admin: 12/15/19 21:14 Dose: 5 mg Documented by: Ondansetron HCl (Zofran) 4 mg PO Q6H PRN PRN Reason: NAUSEA AND VOMITING Last Admin: 12/14/19 12:04 Dose: 4 mg Documented by: Senna (Senna Lax) 8.6 mg PO BEDTIME [facility] Last Admin: 12/15/19 20:18 Dose: 8.6 mg Documented by: Data NPU : 12/09/19 15:22 12/09/19 15:22 A&P Additional A&P Information This is a 43-year-old white female with moderate intellectual disability and 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 1. Continue current medications. 2. Encourage individual, group and milieu therapy. 3. Continue every 15 minute observations. 4. We will continue to work with her guardian on discharge planning and discharged to home so that they can find whatever the next option is. Involuntary Hold Information 96 Hour Hold: 96 Hour Involuntary Admission: Yes 96 Hour Hold Ending Date: 12/13/19 96 Hour Hold Ending Time: 18:42 Attestations NPU Medical Necessity Statement*: Inpatient hospitalization is medically necessary and the clinically appropriate intervention at this time. We will monitor medications and make changes as indicated. Likely length of stay 2-3 days.guardian refusing to take back from hospital will speak with her on Tuesday. Coding Level of Care Code Acute Sterilisation Technician for Shelton Mercado
[2019-12-15 14:00] VITALS: BP 116/76; PULSE 75; RESP 18; TEMP 36.6; O2SAT 97
[2019-12-15 19:38] VITALS: BP 121/79; PULSE 82; RESP 20; TEMP 36.3; O2SAT 98
[2019-12-15] MEDS: mirtazapine 15 mg Tablet PO (20:18)
[2019-12-15] MEDS: trazodone 50 mg Tablet PO (20:18)
[2019-12-15] MEDS: sennosides 8.6 mg Tablet PO (20:18)
[2019-12-15] MEDS: OLANZapine ODT 5 MG TABLET PO (21:14)
--- NOTE | 2019-12-15 21:19 | PC.NURSE ---
Pt with periods of anger and agitation this evening. starting. pt yelling help oudly over minmial things. Medicated with Zyprexa Zydis 5 mgs odt per prn order. Pt then returned to room.
--- NOTE | 2019-12-15 22:18 | PC.NURSE ---
Pt resting in bed comfortably with eyes closed. No anxiety or agitation noted. Respirations even and unlabored.
[2019-12-16 06:00] VITALS: BP 110/73; PULSE 73; RESP 18; TEMP 36.5; O2SAT 97
[2019-12-16] MEDS: acetaminophen 325 mg Tablet 650 MG PO (07:20)
[2019-12-16] MEDS: escitalopram 10 mg Tablet 20 MG PO (08:09)
[2019-12-16] MEDS: metoprolol tartrate 25 mg Tablet PO ×2 (08:10→17:12)
[2019-12-16] MEDS: levothyroxine 50 mcg Tablet PO (08:12)
[2019-12-16] MEDS: lurasidone 80 mg Tablet 160 MG PO (08:12)
[2019-12-16] MEDS: haloperidol 5 mg Tablet PO ×2 (08:12→17:12)
[2019-12-16] MEDS: benztropine 1 mg Tablet PO ×2 (08:13→17:12)
[2019-12-16] MEDS: OLANZapine ODT 5 MG TABLET PO ×2 (09:12→23:02)
--- NOTE | 2019-12-16 11:26 | PM.NPN ---
Subjective NPU Subjective: Interval history: Marialuisa presents today continuing to be improved in her impulse control and with her outbursts. She is not having issues at all like she was having when she presented to the unit. She is very verbose and certainly is frustrating to other people on the unit because she is a child-like individual, who never sees a word that she does not like to say. Outside of that she is very respectful and is generally redirectable in most things except for her impulse control in wanting to just talk about everything that is on her mind. She is eating well but she does not sleep as much as she would like. We discussed her taking prn for her sleep to see if trazodone would be helpful. Mental Status Exam MSE Comments: This is an obese, white female, with adequate dress, grooming, and eye contact. No abnormal movements. Cooperative with exam in no acute distress. She does have poor dentition in the sense that she does not take good care of her dental hygiene. Speech was verbose and increased rate, normal volume. Mood described as good; affect congruent. Thought process, organized. Thought content: patient denied any suicidal or homicidal ideation, there were no delusions reported or noted, patient denied any auditory or visual hallucinations. Attention, concentration, and memory appeared intact but were not formally tested. Alert and oriented times three. Insight and judgment are limited, and impulse control is improving. Intellectual ability is limited/impaired. Vitals/I&O/Wt Last Vital Signs Temp 97.7 F 12/16/19 06:00 Pulse 73 12/16/19 06:00 Resp 18 12/16/19 06:00 BP 110/73 12/16/19 06:00 Pulse Ox 97 12/16/19 06:00 Weight last 48 hrs Weight 83.574 kg Home Medications benztropine 1 mg tablet 1 mg PO BID #60 tab 11/20/19 [Rx Confirmed 12/09/19] clonazepam 0.5 mg tablet 0.5 mg PO BID PRN #60 tab 11/20/19 [Rx Confirmed 12/09/19] escitalopram oxalate 20 mg tablet 20 mg PO DAILY #30 tab 11/20/19 [Rx Confirmed 12/09/19] lacosamide 100 mg tablet 100 mg PO BID 11/20/19 [History Confirmed 12/09/19] lurasidone 80 mg tablet 160 mg PO DAILY #30 tab 11/20/19 [Rx Confirmed 12/09/19] metoprolol tartrate 25 mg tablet 25 mg PO BID 11/20/19 [History Confirmed 12/09/19] Remeron 15 mg PO BEDTIME 12/09/19 [History Confirmed 12/09/19] levothyroxine 50 mcg PO DAILY 12/09/19 [History Confirmed 12/09/19] magnesium 500 mg PO DAILY 12/09/19 [History Confirmed 12/09/19] Active Medications Acetaminophen (Tylenol) 650 mg PO Q4H PRN PRN Reason: MILD PAIN Last Admin: 12/16/19 07:20 Dose: 650 mg Documented by: Benztropine Mesylate (Cogentin) 1 mg PO BID PRN PRN Reason: Mild Extrapyramidal symptoms Benztropine Mesylate (Cogentin) 1 mg PO BID [facility] Last Admin: 12/16/19 08:13 Dose: 1 mg Documented by: Camphor/Menthol/Phenol (Blistex) 1 applic TOPICAL Q1H PRN PRN Reason: DRYNESS Last Admin: 12/15/19 05:17 Dose: 1 applic Documented by: Diphenhydramine HCl (Benadryl) 50 mg IM ONCE PRN PRN Reason: Severe Extrapyramidal Symptoms Diphenhydramine HCl (Benadryl) 50 mg IM Q4H PRN PRN Reason: Severe Aggression Escitalopram Oxalate (Lexapro) 20 mg PO DAILY [facility] Last Admin: 12/16/19 08:09 Dose: 20 mg Documented by: Haloperidol (Haldol) 5 mg PO Q4H PRN PRN Reason: AGITATION Last Admin: 12/11/19 11:30 Dose: 5 mg Documented by: Haloperidol (Haldol) 5 mg PO BID [facility] Last Admin: 12/16/19 08:12 Dose: 5 mg Documented by: Haloperidol Lactate (Haldol Inj) 5 mg IM Q4H PRN PRN Reason: Severe Aggression Hydroxyzine Pamoate (Vistaril) 50 mg PO Q6H PRN PRN Reason: ANXIETY Last Admin: 12/15/19 18:34 Dose: 50 mg Documented by: Levothyroxine Sodium (Synthroid) 50 mcg PO DAILY [facility] Last Admin: 12/16/19 08:12 Dose: 50 mcg Documented by: Loperamide HCl (Imodium Capsule) 2 mg PO Q6H PRN PRN Reason: DIARRHEA Lurasidone HCl (Latuda) 160 mg PO DAILY [facility] Last Admin: 12/16/19 08:12 Dose: 160 mg Documented by: Metoprolol Tartrate (Lopressor) 25 mg PO BID [facility] Last Admin: 12/16/19 08:10 Dose: 25 mg Documented by: Mirtazapine (Remeron) 15 mg PO BEDTIME [facility] Last Admin: 12/15/19 20:18 Dose: 15 mg Documented by: Nicotine (Nicoderm 21 Mg Patch) 1 patch TRANSDERMA DAILY PRN PRN Reason: NICOTINE WITHDRAWAL Nicotine Polacrilex (Nicorette) 2 mg BUCCAL Q2H PRN PRN Reason: NICOTINE WITHDRAWAL Last Admin: 12/10/19 16:40 Dose: 2 mg Documented by: Olanzapine (Zyprexa Zydis) 5 mg PO Q4H PRN PRN Reason: Agitation/Psychosis Last Admin: 12/16/19 09:12 Dose: 5 mg Documented by: Ondansetron HCl (Zofran) 4 mg PO Q6H PRN PRN Reason: NAUSEA AND VOMITING Last Admin: 12/14/19 12:04 Dose: 4 mg Documented by: Senna (Senna Lax) 8.6 mg PO BEDTIME [facility] Last Admin: 12/15/19 20:18 Dose: 8.6 mg Documented by: Data NPU : 12/09/19 15:22 12/09/19 15:22 A&P Additional A&P Information This is a 43-year-old white female with moderate intellectual disability and 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 1. Continue current medications. 2. Encourage individual, group and milieu therapy. 3. Continue every 15 minute observations. 4. We will continue to work with her guardian on discharge planning and discharged to home so that they can find whatever the next option is. Involuntary Hold Information 96 Hour Hold: 96 Hour Involuntary Admission: Yes 96 Hour Hold Ending Date: 12/13/19 96 Hour Hold Ending Time: 18:42 Attestations NPU Medical Necessity Statement*: Inpatient hospitalization is medically necessary and the clinically appropriate intervention at this time. We will monitor medications and make changes as indicated. Likely length of stay 2-3 days.guardian refusing to take back from hospital will speak with her on Tuesday. Coding Level of Care Code Acute Product Development for Shelton Mercado
[2019-12-16] MEDS: hyDROXYzine 25 mg Capsule 50 MG PO ×2 (13:11→20:10)
[2019-12-16 14:00] VITALS: BP 108/68; PULSE 72; RESP 17
[2019-12-16] MEDS: nicotine 21 mg Patch 1 PATCH TRANSDERMA (15:52)
[2019-12-16] MEDS: sennosides 8.6 mg Tablet PO (20:10)
[2019-12-16] MEDS: mirtazapine 15 mg Tablet PO (20:10)
--- NOTE | 2019-12-16 20:11 | PC.NURSE ---
vistaril 50 mg po given for anxiety.
--- NOTE | 2019-12-16 20:52 | PC.NURSE ---
[id number] PATIENT ARRIVED TO NPU, YELLING SCREAMING, THREATENING TO HIT STAFF, ATTEMPTING TO CUT SELF ON GLASS AROUND NURSES STATION. BANGING HEAD ON DOORS, SALAS AND HITTING FIRE OR TO CALM DOWN, STAFF, EXTINGUISHER DOOR. SAID WOULD KILL STAFF AND HERSELF. UNABLE TO REDIRECT. STAFF, MARINE UNDERWRITER AND SECURITY ASSISTING TO WORK WITH PATIENT. REFUSED MEDS. DR GARDUNO CALLED 3 SEPERATE TIMES WITH ANY NEW ORDERS. PATIENT DID HIT SECURITY, ATTEMPTED TO BITE HIM, HIT THIS NURSE AND TRIED TO GET INTO DAYROOM WHERE OTHER PATIENTS HAD WENT TO FOR SAFETY. PATIENT WAS PUT IN HOLD BY STAFF, SECURITY AND ASSISTED TO [facility] ROOM WITH SAFE TECHNIQUE/HOLD, KICKED THIS NURSE SEVERAL TIMES. WAS IN [facility] WHEN DR GARDUNO ARRIVED AND TALKED TO PATIENT. SHE FINALLY AGREED TO CALM DOWN AND TAKE HER MEDS. WAS RELEASED FROM [facility] WITH HER 1-1 SITTER AT BEDSIDE. TOOK PM MEDS AND DONE WELL.
[2019-12-16 21:56] VITALS: BP 138/91; PULSE 79; RESP 22; TEMP 36.8; O2SAT 97
--- NOTE | 2019-12-16 22:03 | PC.NURSE ---
CONTINUES TO BE AWAKE, WATCHING TV AND COMING TO NURSES STATION OFF AND ON RAMBLING ON ABOUT THINGS.
--- NOTE | 2019-12-16 23:03 | PC.NURSE ---
Patient behavior. Patient at the desk yelling and calling staff names. Redirected her to her room and she was sitting in the corner yelling for us to leave her alone. She agreed to take medication for agitation, zyprexa zydis 5 mg given.
[2019-12-17 06:00] VITALS: RESP 20
[2019-12-17 06:32] VITALS: RESP 24
[2019-12-17] MEDS: hyDROXYzine 25 mg Capsule 50 MG PO ×2 (07:21→15:18)
[2019-12-17] MEDS: OLANZapine ODT 5 MG TABLET PO ×2 (07:21→15:18)
--- NOTE | 2019-12-17 07:26 | PC.NURSE ---
Addendum entered by Judie Stearns, PARDEEP 12/17/19 18:47: late entry for 12/17/19 @ 0830 PRN MEDS NOT YET EFFECTIVE PT CONT TO ESCALATE AT TIMES, YELLING RANDOMLY AT STAFF, ACCUSING STAFF OF STEALING HER PERSONAL ITEMS. Original Note: PRN VISTARIL & ZYPREXA ZYDIS VISTARIL 50 MG GIVEN PO PER PT C/O ANXIETY & ZYPREXA ZYDIS 5 MG GIVEN PO PER PT C/O AGITATION. PT YELLING AT STAFF AT THE NURSES STATION, SAYING THAT STAFF MEMBERS ARE CALLING HER FAT STAFF ATTEMPTED TO REDIRECT WITH LITTLE SUCCESS. PT CONT TO BE VERBALLY AGGRESSIVE & YELLING. TOOK MEDS WITHOUT INCIDENT. WILL CONT TO MONITOR.
[2019-12-17] MEDS: haloperidol 5 mg Tablet PO ×3 (08:04→17:01)
[2019-12-17] MEDS: benztropine 1 mg Tablet PO ×2 (08:04→17:01)
[2019-12-17] MEDS: escitalopram 10 mg Tablet 20 MG PO (08:04)
[2019-12-17] MEDS: metoprolol tartrate 25 mg Tablet PO ×2 (08:04→17:01)
[2019-12-17] MEDS: levothyroxine 50 mcg Tablet PO (08:04)
[2019-12-17] MEDS: lurasidone 80 mg Tablet 160 MG PO (08:04)
--- NOTE | 2019-12-17 09:25 | PC.NURSE ---
CALL PLACED TO PROVIDER DUE TO PATIENT'S BEHAVIOR. PT YELLING ,SCREAMING AND CURSING IN GROUP AND RAN IN THE HALLWAY . PT TAKEN THROUGH THE BACK HALLWAY AND THEN LAYED DOWN IN THE HALLWAY AND STARTED THRASHING BACK AND FORTH. COLLAR FOLDER OPERATOR INTERVENED AND DEESCALATED PT,STAFF TOOK PT TO HER ROOM AND COLLAR FOLDER OPERATOR PLACED A CALL TO AND ORDERS WERE RECEIVED FOR ATIVAN 2 MG/HALDOL 5 MG PO.
[2019-12-17] MEDS: LORazepam 2 mg Tablet PO (09:29)
--- NOTE | 2019-12-17 09:31 | PC.NURSE ---
Addendum entered by Judie Stearns LPN 12/17/19 18:49: LATE NOTE FOR 12/17/19 @ 1030 PRN HALDOL EFFECTIVE NO FURTHER C/O AGITATION CURRENTLY Original Note: PRN HALDOL 5 MG GIVEN PO PER PT C/O SEVERE AGITATION. PT YELLING LOUDLY PROFANITIES IN GROUP. PARANOID, THINKING STAFF AND OTHER PATIENTS ARE TALKING ABOUT HER. STAFF ATTEMPTS TO REDIRECT WITH NO SUCCESS. PT VERY TEARFUL. TOOK MEDS WITHOUT INCIDENT. WILL CONT TO MONITOR
[2019-12-17 13:54] VITALS: BP 119/75; PULSE 72; RESP 20; TEMP 36.6; O2SAT 98
--- NOTE | 2019-12-17 15:20 | PC.NURSE ---
PRN VISTARIL & ZYPREXA ZYDIS VISTARIL 50 MG GIVEN PO PER PT C/O ANXIETY & ZYPREXA ZYDIS 5 MG GIVEN PO PER PT C/O AGITATION. PT UPSET THAT HER MOTHER ISN'T ALLOWED TO VISIT TODAY PER GUARDIAN REQUEST. PT CURSING UP AT THE NURSES STATION, SAYING I'M NOT GOING TO GO LIVE IN A [facility]! I'LL KILL EVERYBODY IN THERE! I HATE MY GUARDIAN, I'LL HIT HER IN THE HEAD WITH A BASEBALL BAT! STAFF ATTEMPTS TO REDIRECT. PT TOOK MEDS WITHOUT INCIDENT. WILL CONT TO MONITOR
--- NOTE | 2019-12-17 15:45 | PM.NPN ---
Subjective NPU Subjective: Interval history: Marialuisa presents today having had a fairly poor morning. It is unclear what triggered her sometimes she gets focused on ideas that people are speaking about her if she is not engaged in the conversation or she overuses fragments in it could be about a female or something. She did get some when necessary medication and was able to calm herself down after that. She continued to be very focused on leaving and frustrated that the processes moving along slowly like it is. We did inform her that level to papers are being filed but there isn't going to be the need for a an person interview given that they've met her before as she's had this filled out in the past. Currently we believe there will be a phone interview today at some point. Medications: Reviewed: Yes Mental Status Exam MSE Comments: This is an obese, white female, with adequate dress, grooming, and eye contact. No abnormal movements. Cooperative with exam in no acute distress. She does have poor dentition in the sense that she does not take good care of her dental hygiene. Speech was verbose and normal rate and volume with mild dysarthria. Mood described as pretty good; affect congruent. Thought process, organized. Thought content: patient denied any suicidal or homicidal ideation, there were no delusions reported or noted, patient denied any auditory or visual hallucinations. Attention, concentration, and memory appeared mostly intact but were not formally tested. Alert and oriented times three. Insight and judgment are limited, and impulse control is improving. Intellectual ability is limited/impaired. Vitals/I&O/Wt Last Vital Signs Temp 97.8 F 12/17/19 13:54 Pulse 72 12/17/19 13:54 Resp 20 H 12/17/19 13:54 BP 119/75 12/17/19 13:54 Pulse Ox 98 12/17/19 13:54 Weight last 48 hrs Weight 83.574 kg Home Medications benztropine 1 mg tablet 1 mg PO BID #60 tab 11/20/19 [Rx Confirmed 12/09/19] clonazepam 0.5 mg tablet 0.5 mg PO BID PRN #60 tab 11/20/19 [Rx Confirmed 12/09/19] escitalopram oxalate 20 mg tablet 20 mg PO DAILY #30 tab 11/20/19 [Rx Confirmed 12/09/19] lacosamide 100 mg tablet 100 mg PO BID 11/20/19 [History Confirmed 12/09/19] lurasidone 80 mg tablet 160 mg PO DAILY #30 tab 11/20/19 [Rx Confirmed 12/09/19] metoprolol tartrate 25 mg tablet 25 mg PO BID 11/20/19 [History Confirmed 12/09/19] Remeron 15 mg PO BEDTIME 12/09/19 [History Confirmed 12/09/19] levothyroxine 50 mcg PO DAILY 12/09/19 [History Confirmed 12/09/19] magnesium 500 mg PO DAILY 12/09/19 [History Confirmed 12/09/19] Active Medications Acetaminophen (Tylenol) 650 mg PO Q4H PRN PRN Reason: MILD PAIN Last Admin: 12/16/19 07:20 Dose: 650 mg Documented by: Benztropine Mesylate (Cogentin) 1 mg PO BID PRN PRN Reason: Mild Extrapyramidal symptoms Benztropine Mesylate (Cogentin) 1 mg PO BID [facility] Last Admin: 12/17/19 08:04 Dose: 1 mg Documented by: Camphor/Menthol/Phenol (Blistex) 1 applic TOPICAL Q1H PRN PRN Reason: DRYNESS Last Admin: 12/15/19 05:17 Dose: 1 applic Documented by: Diphenhydramine HCl (Benadryl) 50 mg IM ONCE PRN PRN Reason: Severe Extrapyramidal Symptoms Diphenhydramine HCl (Benadryl) 50 mg IM Q4H PRN PRN Reason: Severe Aggression Escitalopram Oxalate (Lexapro) 20 mg PO DAILY [facility] Last Admin: 12/17/19 08:04 Dose: 20 mg Documented by: Haloperidol (Haldol) 5 mg PO Q4H PRN PRN Reason: AGITATION Last Admin: 12/17/19 09:30 Dose: 5 mg Documented by: Haloperidol (Haldol) 5 mg PO BID [facility] Last Admin: 12/17/19 08:04 Dose: 5 mg Documented by: Haloperidol Lactate (Haldol Inj) 5 mg IM Q4H PRN PRN Reason: Severe Aggression Hydroxyzine Pamoate (Vistaril) 50 mg PO Q6H PRN PRN Reason: ANXIETY Last Admin: 12/17/19 15:18 Dose: 50 mg Documented by: Levothyroxine Sodium (Synthroid) 50 mcg PO DAILY [facility] Last Admin: 12/17/19 08:04 Dose: 50 mcg Documented by: Loperamide HCl (Imodium Capsule) 2 mg PO Q6H PRN PRN Reason: DIARRHEA Lurasidone HCl (Latuda) 160 mg PO DAILY [facility] Last Admin: 12/17/19 08:04 Dose: 160 mg Documented by: Metoprolol Tartrate (Lopressor) 25 mg PO BID [facility] Last Admin: 12/17/19 08:04 Dose: 25 mg Documented by: Mirtazapine (Remeron) 15 mg PO BEDTIME [facility] Last Admin: 12/16/19 20:10 Dose: 15 mg Documented by: Nicotine (Nicoderm 21 Mg Patch) 1 patch TRANSDERMA DAILY PRN PRN Reason: NICOTINE WITHDRAWAL Last Admin: 12/16/19 15:52 Dose: 1 patch Documented by: Nicotine Polacrilex (Nicorette) 2 mg BUCCAL Q2H PRN PRN Reason: NICOTINE WITHDRAWAL Last Admin: 12/10/19 16:40 Dose: 2 mg Documented by: Olanzapine (Zyprexa Zydis) 5 mg PO Q4H PRN PRN Reason: Agitation/Psychosis Last Admin: 12/17/19 15:18 Dose: 5 mg Documented by: Ondansetron HCl (Zofran) 4 mg PO Q6H PRN PRN Reason: NAUSEA AND VOMITING Last Admin: 12/14/19 12:04 Dose: 4 mg Documented by: Senna (Senna Lax) 8.6 mg PO BEDTIME [facility] Last Admin: 12/16/19 20:10 Dose: 8.6 mg Documented by: Data NPU : 12/09/19 15:22 12/09/19 15:22 A&P Additional A&P Information This is a 43-year-old white female with moderate intellectual disability and 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 1. Continue current medications. 2. Encourage individual, group and milieu therapy. 3. Continue every 15 minute observations. 4. We will continue to work with her guardian on discharge planning and discharged to home so that they can find whatever the next option is. Involuntary Hold Information 96 Hour Hold: 96 Hour Involuntary Admission: Yes 96 Hour Hold Ending Date: 12/13/19 96 Hour Hold Ending Time: 18:42 Attestations NPU Medical Necessity Statement*: Inpatient hospitalization is medically necessary and the clinically appropriate intervention at this time. We will monitor medications and make changes as indicated. Likely length of stay 4-7 days. She is getting the level II screening today and those are the placement will be fairly quick given the circumstances and given her fairly good behavior here Coding Level of Care Code Acute Activities Officer for Shelton Mercado
[2019-12-17 21:26] VITALS: RESP 22
[2019-12-17] MEDS: mirtazapine 15 mg Tablet PO (23:32)
[2019-12-17] MEDS: sennosides 8.6 mg Tablet PO (23:33)
[2019-12-17] MEDS: trazodone 50 mg Tablet PO (23:33)
[2019-12-18 06:00] VITALS: BP 119/75; PULSE 72; RESP 22; TEMP 36.6; O2SAT 98
[2019-12-18 06:07] VITALS: RESP 21
[2019-12-18] MEDS: lurasidone 80 mg Tablet 160 MG PO (08:25)
[2019-12-18] MEDS: levothyroxine 50 mcg Tablet PO (08:25)
[2019-12-18] MEDS: haloperidol 5 mg Tablet PO ×2 (08:26→17:16)
[2019-12-18] MEDS: escitalopram 10 mg Tablet 20 MG PO (08:26)
[2019-12-18] MEDS: benztropine 1 mg Tablet PO ×2 (08:26→17:16)
[2019-12-18] MEDS: hyDROXYzine 25 mg Capsule 50 MG PO (08:26)
[2019-12-18] MEDS: metoprolol tartrate 25 mg Tablet PO ×2 (08:26→17:16)
--- NOTE | 2019-12-18 08:27 | PC.NURSE ---
Addendum entered by Judie Stearns LPN 12/18/19 10:53: prn med effective no further c/o anxiety. Original Note: PRN VISTARIL 50 MG GIVEN PO PER PT C/O ANXIETY. PT ADAMANT THAT SHE IS NOT GOING TO GO TO A [facility]! PT STATED TO THIS STAFF MEMBER JUST LET ME OUT NOW, I'LL GO TO SNF! WILL CONT TO MONITOR.
[2019-12-18] MEDS: OLANZapine ODT 5 MG TABLET PO (12:19)
--- NOTE | 2019-12-18 12:19 | PC.NURSE ---
Addendum entered by Judie Stearns LPN 12/18/19 14:46: prn med effective no further c/o agitation Original Note: PRN ZYPREXA ZYDIS 5 MG GIVEN PO PER PT C/O INCREASED AGITATION. PT SPECIFICALLY ASKING FOR NERVE MEDICINE TOOK MED WITHOUT INCIDENT WILL CONT TO MONITOR
[2019-12-18 13:56] VITALS: BP 109/68; PULSE 97; RESP 20; TEMP 36.6; O2SAT 98
[2019-12-18] MEDS: blistex lip oint 7 gm Tube 1 APPLIC TOPICAL (15:58)
--- NOTE | 2019-12-18 15:59 | PC.NURSE ---
patient requested Blistex for dry lips. given one application.
--- NOTE | 2019-12-18 16:37 | P.PN_ITS ---
Subjective NPU Subjective: Interval history: Marialuisa presents today doing well. She continues to overall have really silent impulse control and good redirectability. She is less talkative today but continues to be driven to get into a conversation about everything and talk a lot. She appears to be sleeping a little better and is eating fine and reporting no problems. She essentially continues to say she wants to be discharged, but she is not seeming to be locked into the idea of having to go home for her to be happy. She had Level 2 screening and we are awaiting their report. Mental Status Exam MSE Comments: This is an overweight, versus obese, white female, with adequate dress, grooming, and eye contact. No abnormal movements. Cooperative with exam in no acute distress. Speech was increased rate, normal volume with mild dysarthria. Mood described as ?I am being good?; affect congruent. Thought process, organized. Thought content: patient denied any suicidal or homicidal ideation, there were no delusions reported or noted, patient denied any auditory or visual hallucinations. Attention, concentration, and memory appeared intact but were not formally tested. Alert and oriented times three. Insight and judgment are limited but improving. Impulse control is fair. Vitals/I&O/Wt Last Vital Signs Temp 97.8 F 12/18/19 13:56 Pulse 97 12/18/19 13:56 Resp 20 H 12/18/19 13:56 BP 109/68 12/18/19 13:56 Pulse Ox 98 12/18/19 13:56 Home Medications benztropine 1 mg tablet 1 mg PO BID #60 tab 11/20/19 [Rx Confirmed 12/09/19] clonazepam 0.5 mg tablet 0.5 mg PO BID PRN #60 tab 11/20/19 [Rx Confirmed 12/09/19] escitalopram oxalate 20 mg tablet 20 mg PO DAILY #30 tab 11/20/19 [Rx Confirmed 12/09/19] lacosamide 100 mg tablet 100 mg PO BID 11/20/19 [History Confirmed 12/09/19] lurasidone 80 mg tablet 160 mg PO DAILY #30 tab 11/20/19 [Rx Confirmed 12/09/19] metoprolol tartrate 25 mg tablet 25 mg PO BID 11/20/19 [History Confirmed 12/09/19] Remeron 15 mg PO BEDTIME 12/09/19 [History Confirmed 12/09/19] levothyroxine 50 mcg PO DAILY 12/09/19 [History Confirmed 12/09/19] magnesium 500 mg PO DAILY 12/09/19 [History Confirmed 12/09/19] Active Medications Acetaminophen (Tylenol) 650 mg PO Q4H PRN PRN Reason: MILD PAIN Last Admin: 12/16/19 07:20 Dose: 650 mg Documented by: Benztropine Mesylate (Cogentin) 1 mg PO BID PRN PRN Reason: Mild Extrapyramidal symptoms Benztropine Mesylate (Cogentin) 1 mg PO BID [facility] Last Admin: 12/18/19 08:26 Dose: 1 mg Documented by: Camphor/Menthol/Phenol (Blistex) 1 applic TOPICAL Q1H PRN PRN Reason: DRYNESS Last Admin: 12/18/19 15:58 Dose: 1 applic Documented by: Diphenhydramine HCl (Benadryl) 50 mg IM ONCE PRN PRN Reason: Severe Extrapyramidal Symptoms Diphenhydramine HCl (Benadryl) 50 mg IM Q4H PRN PRN Reason: Severe Aggression Escitalopram Oxalate (Lexapro) 20 mg PO DAILY [facility] Last Admin: 12/18/19 08:26 Dose: 20 mg Documented by: Haloperidol (Haldol) 5 mg PO Q4H PRN PRN Reason: AGITATION Last Admin: 12/17/19 09:30 Dose: 5 mg Documented by: Haloperidol (Haldol) 5 mg PO BID [facility] Last Admin: 12/18/19 08:26 Dose: 5 mg Documented by: Haloperidol Lactate (Haldol Inj) 5 mg IM Q4H PRN PRN Reason: Severe Aggression Hydroxyzine Pamoate (Vistaril) 50 mg PO Q6H PRN PRN Reason: ANXIETY Last Admin: 12/18/19 08:26 Dose: 50 mg Documented by: Levothyroxine Sodium (Synthroid) 50 mcg PO DAILY [facility] Last Admin: 12/18/19 08:25 Dose: 50 mcg Documented by: Loperamide HCl (Imodium Capsule) 2 mg PO Q6H PRN PRN Reason: DIARRHEA Lurasidone HCl (Latuda) 160 mg PO DAILY [facility] Last Admin: 12/18/19 08:25 Dose: 160 mg Documented by: Metoprolol Tartrate (Lopressor) 25 mg PO BID [facility] Last Admin: 12/18/19 08:26 Dose: 25 mg Documented by: Mirtazapine (Remeron) 15 mg PO BEDTIME [facility] Last Admin: 12/17/19 23:32 Dose: 15 mg Documented by: Nicotine (Nicoderm 21 Mg Patch) 1 patch TRANSDERMA DAILY PRN PRN Reason: NICOTINE WITHDRAWAL Last Admin: 12/16/19 15:52 Dose: 1 patch Documented by: Nicotine Polacrilex (Nicorette) 2 mg BUCCAL Q2H PRN PRN Reason: NICOTINE WITHDRAWAL Last Admin: 12/10/19 16:40 Dose: 2 mg Documented by: Olanzapine (Zyprexa Zydis) 5 mg PO Q4H PRN PRN Reason: Agitation/Psychosis Last Admin: 12/18/19 12:19 Dose: 5 mg Documented by: Ondansetron HCl (Zofran) 4 mg PO Q6H PRN PRN Reason: NAUSEA AND VOMITING Last Admin: 12/14/19 12:04 Dose: 4 mg Documented by: Senna (Senna Lax) 8.6 mg PO BEDTIME [facility] Last Admin: 12/17/19 23:33 Dose: 8.6 mg Documented by: Trazodone HCl (Desyrel) 50 mg PO BEDTIME [facility] Last Admin: 12/17/19 23:33 Dose: 50 mg Documented by: Data NPU : 12/09/19 15:22 12/09/19 15:22 A&P Additional A&P Information This is a 43-year-old white female with moderate intellectual disability and 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 1. Continue current medications. 2. Encourage individual, group and milieu therapy. 3. Continue every 15 minute observations. 4. We will continue to work with her guardian on discharge planning. Has level two screening, awaiting report. Involuntary Hold Information 96 Hour Hold: 96 Hour Involuntary Admission: Yes 96 Hour Hold Ending Date: 12/13/19 96 Hour Hold Ending Time: 18:42 Attestations NPU Medical Necessity Statement*: Inpatient hospitalization is medically necessary and the clinically appropriate intervention at this time. We will monitor medications and make changes as indicated. Likely length of stay 4-7 days. Level to screening with fine we are waiting report and will discharge as soon as opportunity presents itself. Coding Level of Care Code Acute Rate Supervisor for Shelton Mercado
[2019-12-18] MEDS: sennosides 8.6 mg Tablet PO (20:37)
[2019-12-18] MEDS: mirtazapine 15 mg Tablet PO (20:37)
[2019-12-18] MEDS: nicotine 2 mg Gum BUCCAL (20:37)
[2019-12-18] MEDS: trazodone 50 mg Tablet PO (20:37)
[2019-12-18 20:58] VITALS: BP 122/84; PULSE 83; RESP 20; TEMP 36.7; O2SAT 97
[2019-12-19] MEDS: OLANZapine ODT 5 MG TABLET PO ×2 (00:43→07:50)
[2019-12-19] MEDS: hyDROXYzine 25 mg Capsule 50 MG PO ×2 (00:43→07:50)
--- NOTE | 2019-12-19 01:24 | PC.NURSE ---
pt remains awake, easily agitated, becomes loud, threatening staff, given Vistaril 50 mg, po, and zydis 5 mg po. Pt became tearful stating she did not want to go to a [place] [facility], wanting to go home, verbalizes she is scared. supportive care provided.
[2019-12-19 06:00] VITALS: BP 129/79; PULSE 105; RESP 23; TEMP 36.4; O2SAT 98
--- NOTE | 2019-12-19 07:50 | PC.NURSE ---
PRN ZYPREXA ZYDIS ZYPREXA ZYDIS 5MG PO FOR AGITATION. WILL CONTINUE TO MONITOR FOR MEDICATION EFFECTIVENESS.
--- NOTE | 2019-12-19 07:50 | PC.NURSE ---
PRN VISTARIL VISTARIL 50MG PO FOR ANXIETY. WILL CONTINUE TO MONITOR FOR MEDICATION EFFECTIVENESS.
--- NOTE | 2019-12-19 08:45 | PC.NURSE ---
PRN VISTARIL FOLLOW UP MEDICATION EFFECTIVE. NO S/S OF ANXIETY.
--- NOTE | 2019-12-19 08:45 | PC.NURSE ---
PRN ZYPREXA ZYDIS FOLLOW UP MEDICATION EFFECTIVE. NO S/S OF AGITATION.
[2019-12-19] MEDS: metoprolol tartrate 25 mg Tablet PO (08:46)
[2019-12-19] MEDS: lurasidone 80 mg Tablet 160 MG PO (08:46)
[2019-12-19] MEDS: benztropine 1 mg Tablet PO (08:46)
[2019-12-19] MEDS: haloperidol 5 mg Tablet PO (08:47)
[2019-12-19] MEDS: escitalopram 10 mg Tablet 20 MG PO (08:47)
[2019-12-19] MEDS: levothyroxine 50 mcg Tablet PO (08:47)
[2019-12-19 13:42] VITALS: BP 101/68; PULSE 95; RESP 18; TEMP 36.4; O2SAT 94
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
[2019-12-19 15:26] VITALS: BP 101/68; PULSE 95; RESP 18; TEMP 36.4; O2SAT 94
--- NOTE | 2019-12-21 11:40 | PC.SOCIAL ---
Addendum entered by SYLVIA Montilla 12/25/19 12:19: To clarify the level II was completed and approved after the patient was discharged. It was sent to the guardian per her request along with the PAS[facility] report so that she could proceed with placement at the interested facilities if needed. Original Note: [facility] and copy of level II sent to guardimariusz Alvarenga per request.
== END 2019-12-19 16:42 | disposition home or self-care (01) | DRG 884 ==
LOC: ER 15:35 → NP 18:57
PROVIDERS: Emergency Medicine; Admitting Provider Psychiatry & Neurology Psychiatry; Emergency Provider Family Medicine; PCP Nurse Practitioner Family; Visit Provider Psychiatry & Neurology Psychiatry
DX: F79 Unspecified intellectual disabilities (principal); F63.81 Intermittent explosive disorder; E03.9 Hypothyroidism, unspecified; Z79.1 Long term (current) use of non-steroidal anti-inflammatories (NSAID); Z79.899 Other long term (current) drug therapy; Z79.890 Hormone replacement therapy
CPT/HCPCS: 12345; 36415; 80053; 80306; 80307; 81001; 81025; 83690; 84443; 85025; 96372; 99282; J2060; J3486; Q0162

== ENCOUNTER 2019-12-20 20:40 | Emergency (ER) | payer MEDICAID, SELFPAY ==
[2019-12-20 21:37] VITALS: BMI 31.6
--- NOTE | 2019-12-20 21:48 | XR_ITS ---
WS: [id number] Left hand, 3 views, 12/20/2019 Clinical Data: pain Comparison: None. Findings: No fractures or dislocations are seen. The soft tissues are unremarkable. The joint spaces are dorian l. XR/XR hand LT min 3V* [id number] Impression: Negative left hand.
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
--- NOTE | 2019-12-20 22:03 | XR_ITS ---
WS: [id number] ELBOW LEFT TECHNIQUE: 3 views of the left elbow CLINICAL INFORMATION: injury COMPARISON: None. FINDINGS: No significant joint effusion. Distal humerus is normal in appearance. Normal radial head. Normal ole cranon. No evidence of acute fracture dislocation. Soft tissue edema over the olecranon. XR/XR elbow LT min 3V* [id number] IMPRESSION: Soft tissue edema overlying the olecranon. No acute fractures.
--- NOTE | 2019-12-20 22:03 | XR_ITS ---
WS: [id number] FOREARM LEFT TECHNIQUE: 2 views of the left forearm CLINICAL INFORMATION: injury COMPARISON: None. FINDINGS: No evidence of radial head dislocation. The radius and ulna appear normal. No visualized forearm fra ctures. Normal radiocarpal joint. XR/XR forearm LT 2V [id number] IMPRESSION: Normal left forearm.
[2019-12-20] MEDS: ibuprofen 600 mg Tablet PO (22:36)
[2019-12-20 22:44] VITALS: BP 113/73; PULSE 104; RESP 16; O2SAT 95
== END 2019-12-20 22:45 | disposition home or self-care (01) ==
LOC: ER 22:58
PROVIDERS: Emergency Provider Nurse Practitioner Family; PCP Nurse Practitioner Family
DX: S63.502A Unspecified sprain of left wrist, initial encounter (principal); S66.912A Strain of unspecified muscle, fascia and tendon at wrist and hand level, left hand, initial encounter; M25.522 Pain in left elbow; F17.210 Nicotine dependence, cigarettes, uncomplicated; X58.XXXA Exposure to other specified factors, initial encounter
CPT/HCPCS: 12345; 73080; 73090; 73130; 99281; 99283

== ENCOUNTER 2019-12-25 12:34 | Inpatient (IN) | payer MEDICAID, SELFPAY ==
[2019-12-25 11:43] VITALS: BP 149/83; PULSE 118; RESP 18; TEMP 36.3; O2SAT 98; BMI 25.0
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
[2019-12-25 11:52] VITALS: PULSE 108; RESP 18
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
[2019-12-25 12:40] LABS: Basophils % 0.2 %; Eosinophils # 0.1 10^3/uL (0.0-0.8); Eosinophils % 0.6 %; Hematocrit 40.2 % (37.0-47.0); Hemoglobin 13.1 g/dL (11.5-15.3); Lymphocytes # 1.1 10^3/uL (0.8-4.8); Lymphocytes % 9.5 %; Mean Corpuscular HGB Conc 32.6 g/dL (30.0-36.0); Mean Platelet Volume 9.8 fL (7.4-10.4); Monocytes # 0.7 10^3/uL (0.2-0.9); Monocytes % 6.2 %; Neutrophils # 9.3 10^3/uL (1.8-7.7); Neutrophils % 83.2 %; Nucleated Red Blood Cells % 0 %; Platelet Count 325 10^3/cmm (130-400); Red Blood Count 4.37 10^6/uL (4.1-5.3); Red Cell Distribution Width 13.2 % (12.1-15.1); White Blood Count 11.2 10^3/uL (4.0-10.0)
[2019-12-25 13:02] LABS: Alanine Aminotransferase 36 U/L (0-33); Albumin Level 3.7 g/dL (3.5-5.2); Alkaline Phosphatase 126 IU/L (35-105); Anion Gap 15.9 (5-19); Aspartate Amino Transferase 72 U/L (0-32); Blood Urea Nitrogen 7 mg/dL (6-20); Calcium 9.4 mg/dL (8.5-10.5); Carbon Dioxide 23 mmol/L (22-29); Chloride 101 mmol/L (98-107); Globulin 3.6 g/dL (1.3-4.6); Glomerular Filtration Rate 48.4 mL/min (90-130); Glucose 122 mg/dL (65-115); Osmolality Calculated 279 mOsm/kg (285-295); Potassium 3.9 mmol/L (3.5-5.1); Sodium 136 mmol/L (136-145); Total Bilirubin 0.3 mg/dL (0.15-1.2); Total Protein 7.3 g/dL (6.6-8.7)
[2019-12-25 13:10] LABS: Acetaminophen < 5.0 ug/mL (10-30); Alcohol Level < 10 mg/dL (0-10); Salicylate < 0.3 mg/dL (3-10)
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
[2019-12-25 13:26] LABS: HCG Qualitative Urine. Negative (Negative); Urine Appearance Cloudy (CLEAR); Urine Color Yellow (Yellow)
[2019-12-25 13:27] LABS: Add Urine Microscopic? YES; Bilirubin Urine Neg (NEGATIVE); Blood Urine 2+ (Negative); Glucose Urine UA Norm (Normal); Ketones Urine Negative (Negative); Leukocyte Esterase Urine 2+ (Negative); Nitrate Urine Positive (Negative); Protein Urine Neg (Negative); Specific Gravity, Urine 1.015 (1.005-1.030); Urobilinogen Urine Norm (Negative); pH Urine 5 (5-7)
[2019-12-25 13:32] LABS: Add Urine Culture? Yes; Bacteria Urine 4+; Mucus Urine TRACE; RBC Urine 15-25 /hpf (0-2); WBC Urine TOO NUMEROUS TO CNT /hpf (0-5)
[2019-12-25 13:35] LABS: Amphetamines Screen Urine Negative (Negative); Barbiturates Screen Urine Negative (Negative); Benzodiazepines Screen Urine Negative (Negative); Cocaine Screen Urine Negative (Negative); Opiate Screen Urine Negative (Negative); PCP Screen Urine Positive (Negative); THC Screen Urine Negative (Negative)
[2019-12-25 14:00] VITALS: RESP 18
[2019-12-25 14:20] VITALS: PULSE 106; RESP 18; O2SAT 98
[2019-12-25 14:45] VITALS: BP 133/94; PULSE 102; RESP 18; O2SAT 98
[2019-12-25 15:33] VITALS: BP 113/72; PULSE 116; RESP 20; TEMP 36.4; O2SAT 99
[2019-12-25] MEDS: nicotine 21 mg Patch 1 PATCH TRANSDERMA (16:06)
[2019-12-25] MEDS: benztropine 1 mg Tablet PO (17:05)
[2019-12-25] MEDS: lacosamide 50 mg Tablet 100 MG PO (17:05)
[2019-12-25] MEDS: LORazepam 2 mg Tablet PO (17:06)
[2019-12-25] MEDS: lithium carbonate 300 mg Capsule PO (17:06)
[2019-12-25] MEDS: acetaminophen 325 mg Tablet 650 MG PO (17:06)
[2019-12-25] MEDS: metoprolol tartrate 25 mg Tablet PO (17:07)
[2019-12-25] MEDS: mirtazapine 30 mg Tablet PO (21:07)
[2019-12-25] MEDS: trazodone 50 mg Tablet PO ×2 (21:07→21:08)
[2019-12-26 06:00] VITALS: RESP 20
[2019-12-26] MEDS: hyDROXYzine 25 mg Capsule 50 MG PO ×3 (07:37→16:58)
[2019-12-26] MEDS: OLANZapine ODT 5 MG TABLET PO ×2 (07:37→12:50)
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
[2019-12-26] MEDS: lacosamide 50 mg Tablet 100 MG PO ×2 (08:24→16:58)
[2019-12-26] MEDS: benztropine 1 mg Tablet PO (08:24)
[2019-12-26] MEDS: metoprolol tartrate 25 mg Tablet PO ×2 (08:24→16:57)
[2019-12-26] MEDS: LORazepam 1 mg Tablet PO ×2 (08:24→13:04)
[2019-12-26] MEDS: lurasidone 80 mg Tablet 160 MG PO (08:24)
[2019-12-26] MEDS: lithium carbonate 300 mg Capsule PO ×2 (08:25→16:58)
[2019-12-26] MEDS: levothyroxine 50 mcg Tablet PO (08:25)
--- NOTE | 2019-12-26 12:51 | PC.NURSE ---
Addendum entered by Judie Stearns LPN 12/26/19 14:23: prn meds effective no further c/o anxiety or agitation. pt asleep in bed in room currently, resp even et unlabored Original Note: PRN VISTARIL & ZYPREXA ZYDIS VISTARIL 50 MG GIVEN PO PER PT C/O ANXIETY. ZYPREXA ZYDIS 5 MG GIVEN PO PER PT C/O AGITATION. PT IRRITABLE, YELLING & HITTING SALAS IN DAY ROOM. ACCUSING STAFF OF LAUGHING AT HER WHEN NO STAFF MEMBER WAS LAUGHING AT HER. TOOK MEDS WITHOUT INCIDENT. WILL CONT TO MONITOR
[2019-12-26 13:15] VITALS: BP 109/70; PULSE 95; RESP 18; TEMP 36.8; O2SAT 99
[2019-12-26] MEDS: lurasidone 80 mg Tablet 120 MG PO (16:57)
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
[2019-12-26] MEDS: diazePAM 5 mg Tablet 10 MG PO (20:32)
[2019-12-26] MEDS: trazodone 50 mg Tablet PO (20:32)
[2019-12-26] MEDS: mirtazapine 30 mg Tablet PO (20:32)
--- NOTE | 2019-12-26 20:32 | PC.NURSE ---
HS meds diazepam, remeron and trazodone given at this time.
[2019-12-26 21:17] VITALS: RESP 20
[2019-12-27 05:56] VITALS: RESP 21
[2019-12-27] MEDS: levothyroxine 50 mcg Tablet PO (08:13)
[2019-12-27] MEDS: metoprolol tartrate 50 mg Tablet PO ×2 (08:13→16:35)
[2019-12-27] MEDS: lithium carbonate 300 mg Capsule PO ×2 (08:13→16:35)
[2019-12-27] MEDS: lacosamide 50 mg Tablet 100 MG PO ×2 (08:13→16:35)
[2019-12-27] MEDS: hyDROXYzine 25 mg Capsule 50 MG PO (08:13)
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
[2019-12-27] MEDS: LORazepam 2 mg/mL INJ 1 mL IM (09:00)
--- NOTE | 2019-12-27 09:05 | P.PN_ITS ---
Subjective NPU Subjective: Interval history: Patient with regular compalints of no one loving her and wanting to go home to her mother. No specific medication complaints. Mental Status Exam MSE Comments: Mental Status Exam: Appearance: hygiene is fair; no gross neurological deficits., gait is unr emarkable; AIMS=0 Speech: Speech is loud of normal rate and rhythm and generally understood. Thought processes: Thought processes are concrete. Judgment is not adequate for safety wihtout supervision. Psychotic processes: There is no indication of guarding or paranoia. There is no attention to the internal stimuli. Auditory and visual hallucinations are denied. Judgment: Insight is fair. Problem solving skills are adequate for safety. Orientation: The patient is oriented to person, place time and situation. Memory: no deficits noted in immediate, intermediate, or remote spheres. Attention: The patient is alert and interpersonally engaged. Language: Verbalizations are coherent. Fund of knowledge: Fund of knowledge is poor. Affect/Mood: Affect is consistent with a euthymic mood. ([no suicidal ideation Affective range is labile Psychosis: perception impaired except through cognitive deficie and emotional overload; reality testing intact. Cognition: Patient Appearance: Disheveled/Poor Hygiene Level of Consciousness: Awake, Alert, Appropriate and Follows Commands Patient Cognition Impaired: Yes Ability to Follow Directions: Poor Patient Orientation (long list): Person, Place, Time and Name Comprehension Ability: Moderate Impairment Hallucination Type: None Delusion Description: Not Present Thought Process: Disorganized and Flight of Ideas Anxiety: Anxiety Level: No Symptoms or Sensations Affect: Affect Description: Depressed and Tearful Behavior: Patient Behavior: Cooperative, Demanding, Impulsive, Irritable and Negative Speech Pattern: Animated and Mumbled Vitals/I&O/Wt Last Vital Signs Temp 98.3 F 12/26/19 13:15 Pulse 95 12/26/19 13:15 Resp 21 H 12/27/19 05:56 BP 109/70 12/26/19 13:15 Pulse Ox 99 12/26/19 13:15 Weight last 48 hrs Weight 72.575 kg Data NPU : 12/25/19 12:23 12/25/19 12:23 Micro: Microbiology 12/25/19 13:13 Urine Culture - Preliminary Urine,Clean Catch Gram Negative Rods Microbiology 12/25/19 13:13 Urine,Clean Catch Urine Culture - Preliminary Gram Negative Rods A&P Additional A&P Information (1) Intellectual disability: This is a 43-year-old white female with moderate intellectual disability and 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 Hospital day #4: OBJECTIVE: chart review on this patient indicates that even though she is being treated with high-dose antipsychotic medication, at no time has there ever been documented that she is suffering from first rank symptoms or a psychosis that be expected to be responding to antipsychotic medication. Is likely that she has been treated on the short-term for behavioral control. Standard of care does not encourage high-dose antipsychotic medication for behavioral control. she is also on lacosamide might which is an adjunctive medication for seizure control and is on a low dose of that. It is unclear when that was started. Her medications in July 2011 when [facility] a [facility]: Plan: 1. Start Risperdal 0.5 mg b.i.d. p.r.n. 2. Continue Cogentin 1 mg q.h.s. 3. Continue Abilify 20 mg q.h.s. 4. Continue Celexa 20 mg q. daily. 5. Continue Tegretol 200 mg b.i.d. 6. Continue Depakote ER 750 mg q.h.s. 7. Continue Klonopin 1 mg t.i.d. and 1 mg daily p.r.n. for anxiety. she remained stable and free of hospitalization this year until September2017. her medication list at that time: Benztropine Tab (Cogentin Tab) 1 Mg Tablet BID, TAB Clonazepam Tab (Klonopin Tab) 1 Mg PO DAILY PRN for FOR MILD Divalproex ER (Depakote ER) 1000 MG PO BEDTIME, TAB Escitalopram Tab (Lexapro Tab) 20 MG PO DAILY, Lacosamide Tab (Vimpat Tab) 100 MG PO BID Levothyroxine Sodium (Levothroid) 100 MCG PO DAILY, TAB Lurasidone Tab (Latuda Tab) 120 MG PO DAILY@1700, TAB Metoprolol Tartrate Tab (Metoprolol Tab) 25 MG PO BID, TAB Omeprazole Tab (Prilosec Tab) 20 MG PO DAILY, TAB Rifaximin Tab (Xifaxan Tab) 550 MG PO BID, TAB Tramadol Tab (Ultram Tab) 50 MG PO QID PRN for FOR MODERATE PAIN, TAB The plan since her admission has been to try and reduce her irritability and stimulus seeking. She seems to respond well to benzodiazepines on the short-ter m. There is no sign of first rank psychotic symptoms and the intent is to continue reducing her lurasidone though the intent is not to discontinue it at this time. [place] has been added to target her volatility and irritability. Pending response, either lacosamide will be increased or she will be started with a first-line antiepileptic medication for mood stabilization. continuation of lithium will also be determined by her current response. Plan for tomorrow is a lithium level.the combination of hydroxyzine and lorazepam yesterday provided minimal benefit. Olanzapine has been helpful though it is likely due to antihistamine effect rather than a dopaminergic effect. Plan:Replace prn hydroxyzine with lorazepam when necessary. New diazepam 10 mg at bedtime and she slept quite well last night. F79 - Unspecified intellectual disabilities Involuntary Hold Information 96 Hour Hold: 96 Hour Involuntary Admission: Yes 96 Hour Hold Ending Date: 12/31/19 96 Hour Hold Ending Time: 12:00 Attestations NPU Medical Necessity Statement*: patient will remain in the hospital another 4-5 nights while placement is pursued and medication efficacy is improved. Coding Level of Care Code Acute Automobile Rental Representative for Shelton Mercado
[2019-12-27] MEDS: OLANZapine ODT 5 MG TABLET PO ×2 (10:23→14:26)
[2019-12-27] MEDS: acetaminophen 325 mg Tablet 650 MG PO (10:23)
[2019-12-27] MEDS: LORazepam 1 mg Tablet PO ×2 (10:23→14:26)
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
[2019-12-27 14:00] VITALS: BP 124/84; PULSE 87; RESP 18; TEMP 36.7; O2SAT 98
--- NOTE | 2019-12-27 14:27 | PC.NURSE ---
Addendum entered by Judie Stearsn LPN 12/27/19 15:51: PRN MEDS EFFECTIVE NO FURTHER C/O ANXIETY/AGITATION CURRENTLY Original Note: PRN ATIVAN & ZYPREXA ZYDIS ATIVAN 1 MG GIVEN PO PER PT C/O ANXIETY/AGITATION. ZYPREXA ZYDIS 5 MG GIVEN PO PER PT C/O AGITATION. PT YELLING AT NURSING STAFF, YELLING THAT SHE IS GOING HOME TODAY! STAFF ATTEMPTS TO REDIRECT WITH LITTLE SUCCESS. TOOK MEDS WITH STAFF ENCOURAGEMENT. WILL CONT TO MONITOR.
[2019-12-27] MEDS: lurasidone 80 mg Tablet PO (16:34)
[2019-12-27] MEDS: lurasidone 20 mg Tablet PO (16:34)
[2019-12-27] MEDS: hyDROXYzine 25 mg Capsule PO (16:35)
--- NOTE | 2019-12-27 21:00 | PC.NURSE ---
pt resting with both eyes closed at this time, HS meds not given. will attempt to give HS meds when pt wakes up.
[2019-12-27 21:19] VITALS: RESP 19
[2019-12-27] MEDS: trazodone 50 mg Tablet PO (22:22)
[2019-12-27] MEDS: diazePAM 5 mg Tablet 10 MG PO (22:22)
[2019-12-27] MEDS: mirtazapine 30 mg Tablet PO (22:23)
--- NOTE | 2019-12-27 22:25 | NUR.SHIFT ---
Pt given HS meds at this time.
[2019-12-28] MEDS: acetaminophen 325 mg Tablet 650 MG PO ×2 (04:56→09:56)
[2019-12-28 06:00] VITALS: BP 116/77; PULSE 79; RESP 23; TEMP 36.5; O2SAT 97
[2019-12-28] MEDS: LORazepam 2 mg/mL INJ 1 mL IM (06:05)
--- NOTE | 2019-12-28 06:05 | PC.NURSE ---
pt given ativan IM for increased agitation, and aggressive behavior. pt yelling at staff, calling the RN a bitch , and other profanities.security called and assisted with calming pt .
[2019-12-28 07:14] LABS: Lithium 0.6 mmol/L (0.6-1.2)
[2019-12-28] MEDS: lacosamide 50 mg Tablet 100 MG PO (07:52)
[2019-12-28] MEDS: metoprolol tartrate 50 mg Tablet PO ×2 (07:52→17:11)
[2019-12-28] MEDS: hyDROXYzine 25 mg Capsule PO (07:52)
[2019-12-28] MEDS: levothyroxine 50 mcg Tablet PO (07:53)
[2019-12-28] MEDS: lithium carbonate 300 mg Capsule PO (07:53)
[2019-12-28] MEDS: OLANZapine ODT 5 MG TABLET PO ×2 (08:42→13:04)
[2019-12-28] MEDS: loperamide 2 mg Capsule PO (08:49)
[2019-12-28] MEDS: divalproex DR 500 mg Tablet PO ×2 (10:11→17:11)
[2019-12-28] MEDS: LORazepam 1 mg Tablet PO (13:04)
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
[2019-12-28 13:50] VITALS: BP 86/61; PULSE 78; RESP 18; TEMP 36.8; O2SAT 96
[2019-12-28] MEDS: quetiapine 100 mg Tablet PO (14:47)
--- NOTE | 2019-12-28 15:20 | PC.NURSE ---
PT WAS STANDING AT THE NURSES STATION AND ASKED FOR THE PHONE NUMBER TO HER PARENTS AND STAFF OBTAINED IT FOR PT AND PT ATTEMPTED TO MAKE PHONE CALL BUT TOLD STAFF THEY GAVE ME THE WRONG FUCKING PHONE NUMBER THREW HER STRESS BALL THROUGH THE NURSES STATION WINDOWS,AND THEN PICKED UP THE PHONE AND THREW IT DOWN ON THE NURSES STATION AND STARTED POUNDING ON THE GLASS AT THE NURSES STATION. COT ASSEMBLER INTERVENED AND ATTEMPTED TO DEESCALATE BEHAVIOR,PT WENT TO HER ROOM,BUT CONTINUED TO SCREAM AND CRY. COT ASSEMBLER ADMINISTERED HALDOL 5 MG PO FOR INCREASED AGITATION. WILL CONT TO MONITOR AND FOLLOW UP NEEDED. PT STOPPED YELLING AND APOLOGIZED TO STAFF AND COT ASSEMBLER
[2019-12-28] MEDS: haloperidol 5 mg Tablet PO (15:24)
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
[2019-12-28] MEDS: lurasidone 80 mg Tablet PO (17:11)
[2019-12-28] MEDS: diazePAM 5 mg Tablet 10 MG PO (21:32)
[2019-12-28] MEDS: mirtazapine 30 mg Tablet PO (21:32)
[2019-12-28] MEDS: trazodone 50 mg Tablet PO (21:32)
[2019-12-28] MEDS: haloperidol 1 mg Tablet 2 MG PO (21:32)
[2019-12-28 22:00] VITALS: BP 106/75; PULSE 79; RESP 18; TEMP 36.6; O2SAT 97
[2019-12-29 06:00] VITALS: BP 112/76; PULSE 89; RESP 18; TEMP 36.9; O2SAT 99
[2019-12-29] MEDS: divalproex DR 500 mg Tablet PO ×2 (08:26→17:12)
[2019-12-29] MEDS: metoprolol tartrate 50 mg Tablet PO ×2 (08:27→17:12)
[2019-12-29] MEDS: haloperidol 1 mg Tablet 2 MG PO ×3 (08:27→22:00)
[2019-12-29] MEDS: levothyroxine 50 mcg Tablet PO (08:27)
--- NOTE | 2019-12-29 09:40 | PM.NPN ---
Subjective NPU Subjective: Interval history: patient in much better affect today. First time she engaged this physician not demanding to be discharged NOW and then exploding afterward. Mental Status Exam MSE Comments: Mental Status Exam: Appearance: hygiene is fair; no gross neurological deficits., gait is unremarkable; AIMS=0 Speech: Speech is loud of normal rate and rhythm and generally understood. Thought processes: Thought processes are concrete. Judgment is not adequate for safety without supervision. Psychotic processes: There is no indication of guarding or paranoia. There is no attention to the internal stimuli. Auditory and visual hallucinations are denied. Judgment: Insight is poor. Problem solving skills are adequate for safety. Orientation: The patient is oriented to person, place time and situation. Memory: no deficits noted in immediate, intermediate, or remote spheres. Attention: The patient is alert and interpersonally engaged. Language: Verbalizations are coherent. Fund of knowledge: Fund of knowledge is poor. Affect/Mood: Affect is c/w with a euthymic mood. no suicidal ideation .Affective range is mildly irritable. Psychosis: perception impaired except through cognitive deficit and emotional overload; reality testing intact. Cognition: Patient Appearance: Disheveled/Poor Hygiene Level of Consciousness: Awake, Alert, Appropriate and Follows Commands Patient Cognition Impaired: Yes Ability to Follow Directions: Poor Patient Orientation (long list): Person, Place, Time and Name Comprehension Ability: Moderate Impairment Hallucination Type: None Delusion Description: Not Present Thought Process: Flight of Ideas Anxiety: Anxiety Level: No Symptoms or Sensations Affect: Affect Description: Anxious, Guarded and Labile Behavior: Patient Behavior: Appropriate, Cooperative, Impulsive, Intrusive and Irritable Speech Pattern: Appropriate, Clear, Pressured, Rambling and Slurred Vitals/I&O/Wt Last Vital Signs Temp 98.4 F 12/29/19 06:00 Pulse 89 12/29/19 06:00 Resp 18 12/29/19 06:00 BP 112/76 12/29/19 06:00 Pulse Ox 99 12/29/19 06:00 Data NPU : 12/25/19 12:23 12/25/19 12:23 A&P Additional A&P Information (1) Intellectual disability: This is a 43-year-old white female with moderate intellectual disability and 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 Hospital day #4: OBJECTIVE: chart review on this patient indicates that even though she is being treated with high-dose antipsychotic medication, at no time has there ever been documented that she is suffering from first rank symptoms or a psychosis that be expected to be responding to antipsychotic medication. Is likely that she has been treated on the short-term for behavioral control. Standard of care does not encourage high-dose antipsychotic medication for behavioral control. she is also on lacosamide might which is an adjunctive medication for seizure control and is on a low dose of that. It is unclear when that was started. Her medications in July 2011 when she was in a [facility]: Plan: 1. Start Risperdal 0.5 mg b.i.d. p.r.n. 2. Continue Cogentin 1 mg q.h.s. 3. Continue Abilify 20 mg q.h.s. 4. Continue Celexa 20 mg q. daily. 5. Continue Tegretol 200 mg b.i.d. 6. Continue Depakote ER 750 mg q.h.s. 7. Continue Klonopin 1 mg t.i.d. and 1 mg daily p.r.n. for anxiety. she remained stable and free of hospitalization this year until September2017. her medication list at that time: Benztropine Tab (Cogentin Tab) 1 Mg Tablet BID, TAB Clonazepam Tab (Klonopin Tab) 1 Mg PO DAILY PRN for FOR MILD Divalproex ER (Depakote ER) 1000 MG PO BEDTIME, TAB Escitalopram Tab (Lexapro Tab) 20 MG PO DAILY, Lacosamide Tab (Vimpat Tab) 100 MG PO BID Levothyroxine Sodium (Levothroid) 100 MCG PO DAILY, TAB Lurasidone Tab (Latuda Tab) 120 MG PO DAILY@1700, TAB Metoprolol Tartrate Tab (Metoprolol Tab) 25 MG PO BID, TAB Omeprazole Tab (Prilosec Tab) 20 MG PO DAILY, TAB Rifaximin Tab (Xifaxan Tab) 550 MG PO BID, TAB Tramadol Tab (Ultram Tab) 50 MG PO QID PRN for FOR MODERATE PAIN, TAB The plan since her admission has been to try and reduce her irritability and stimulus seeking. She seems to respond well to benzodiazepines on the short-term. There is no sign of first rank psychotic symptoms and the intent is to continue reducing her lurasidone though the intent is not to discontinue it at this time. [place] has been added to target her volatility and irritability. Pending response, either lacosamide will be increased or she will be started with a first-line antiepileptic medication for mood stabilization. continuation of lithium will also be determined by her current response. Plan for tomorrow is a lithium level.the combination of hydroxyzine and lorazepam yesterday provided minimal benefit. Olanzapine has been helpful though it is likely due to antihistamine effect rather than a dopaminergic effect. Plan:Replace prn hydroxyzine with lorazepam when necessary. New diazepam 10 mg at bedtime and she slept quite well last night. hospital day #5: Patient exhibits the emotional dyscontrol of a child around the age of 1. She is explosive in behavior and manipulates her environment with these explosive assaultive outbursts. Unfortunately, this is not a mental health unit that is adept at managing behaviors. In fact, rather than worrying good behavior and punishing bad behavior, her unwanted behaviors are actually encouraged with report of increased staff time and empathy. Her lithium level on 300 mg bid was 0.6 but caused diaarrhea so it was stopped and replaced with Depakote 500 mg bid that she has tolerated and done well on in the past. Lucosamide was stopped as it was not helping and is considered an adjunctive AED. It appears that lorazepam provides no benefit while the diazepam at night seems to help. Vistarel has not provided sigfificant reduction in explosive outbursts. PLAN: trial fo low dose seroquel, not for psychosis but for reduced reactivity, HD#6: Seroquel was replaced with haldol 2 mg tid when she responded well to a prn haldol 5 mg yesterday. She slpet thorugh the night. Seems to be less labile and definitely less irritable. PLAN: no changes; VPA level on 12/31/2019 F79 - Unspecified intellectual disabilities Involuntary Hold Information 96 Hour Hold: 96 Hour Involuntary Admission: Yes 96 Hour Hold Ending Date: 12/31/19 96 Hour Hold Ending Time: 12:00 Attestations NPU Medical Necessity Statement*: Pt to remain in hospital another 3-4 nights for assessment of medication tolerance and efficacy. Coding Level of Care Code Acute Tomato Grader for Shelton Mercado
[2019-12-29] MEDS: acetaminophen 325 mg Tablet 650 MG PO ×2 (09:44→14:41)
[2019-12-29] MEDS: LORazepam 1 mg Tablet PO (10:36)
--- NOTE | 2019-12-29 10:36 | PC.NURSE ---
PT YELLING AND CUSSING AT STAFF AND OTHER PATIENTS. ATTEMPTING TO DEESCALATE PT WITH LITTLE CHANGE. ADMINISTERED ATIVAN 1 MG PO ORDERED. WILL CONT TO MONITOR AND FOLLOW UP NEEDED.
--- NOTE | 2019-12-29 11:13 | PC.NURSE ---
PT CONTINUES TO BE LABILE AT TIMES,BUT HASNT BEEN YELLING MUCH. WILL CONT TO MONITOR AND FOLLOW UP NEEDED.
[2019-12-29 12:53] VITALS: BP 96/60; PULSE 79; RESP 19; TEMP 36.4; O2SAT 98
[2019-12-29] MEDS: lurasidone 80 mg Tablet PO (17:12)
[2019-12-29] MEDS: sulfamethoxazole-trimeth DS 160-800 mg Tablet 1 TAB PO (17:34)
[2019-12-29 22:00] VITALS: BP 113/76; PULSE 80; RESP 18; TEMP 36.6; O2SAT 98
[2019-12-29] MEDS: mirtazapine 30 mg Tablet PO (22:00)
[2019-12-29] MEDS: trazodone 50 mg Tablet PO (22:01)
[2019-12-29] MEDS: diazePAM 5 mg Tablet 10 MG PO (22:01)
[2019-12-30 06:00] VITALS: BP 88/57; PULSE 80; RESP 18; TEMP 36.8; O2SAT 99
[2019-12-30] MEDS: acetaminophen 325 mg Tablet 650 MG PO ×2 (08:00→15:28)
[2019-12-30] MEDS: sulfamethoxazole-trimeth DS 160-800 mg Tablet 1 TAB PO ×2 (08:01→17:33)
[2019-12-30] MEDS: haloperidol 1 mg Tablet 2 MG PO ×3 (08:01→21:20)
[2019-12-30] MEDS: divalproex DR 500 mg Tablet PO ×2 (08:01→17:33)
[2019-12-30] MEDS: levothyroxine 50 mcg Tablet PO (08:02)
[2019-12-30] MEDS: metoprolol tartrate 50 mg Tablet PO ×2 (08:02→17:33)
--- NOTE | 2019-12-30 08:43 | P.PN_ITS ---
Subjective NPU Subjective: Interval history: The patient has not significantly changed. She continues to have wide-swinging mood episodes, now cheerful and chatty, now fitful, even rageful and bawling. I see that my predecessor correctly assessed the lack of efficacy with dopamine blockade and correctly diagnosed her with intermittent explosive disorder. He notes that she had previously done well with a combination of Abilify, an anticonvulsant mood stabilizer and a benzodiazepine. He has her on Depakote 500 mg twice daily, with a Depakote trough level scheduled for tomorrow. I note that she is under guardianship, which obviates the necessity for application for a 21-day hearing. Medications: Reviewed: Yes Medication Review Details: Current Medications Acetaminophen (Tylenol) 650 mg PO Q4H PRN PRN Reason: MILD PAIN Last Admin: 12/30/19 08:00 Dose: 650 mg Documented by: Benztropine Mesylate (Cogentin) 1 mg PO BID PRN PRN Reason: Mild Extrapyramidal symptoms Camphor/Menthol/Phenol (Blistex) 1 applic TOPICAL Q1H PRN PRN Reason: DRYNESS Diazepam (Valium) 10 mg PO BEDTIME [facility] Last Admin: 12/29/19 22:01 Dose: 10 mg Documented by: Diphenhydramine HCl (Benadryl) 50 mg IM ONCE PRN PRN Reason: Severe Extrapyramidal Symptoms Diphenhydramine HCl (Benadryl) 50 mg IM Q4H PRN PRN Reason: Severe Aggression Divalproex Sodium (Depakote Dr) 500 mg PO BID [facility] Last Admin: 12/30/19 08:01 Dose: 500 mg Documented by: Haloperidol (Haldol) 5 mg PO Q4H PRN PRN Reason: AGITATION Last Admin: 12/28/19 15:24 Dose: 5 mg Documented by: Haloperidol (Haldol) 2 mg PO TID [facility] Last Admin: 12/30/19 08:01 Dose: 2 mg Documented by: Haloperidol Lactate (Haldol Inj) 5 mg IM Q4H PRN PRN Reason: Severe Aggression Levothyroxine Sodium (Synthroid) 50 mcg PO DAILY [facility] Last Admin: 12/30/19 08:02 Dose: 50 mcg Documented by: Loperamide HCl (Imodium Capsule) 2 mg PO Q6H PRN PRN Reason: DIARRHEA Last Admin: 12/28/19 08:49 Dose: 2 mg Documented by: Lorazepam (Ativan) 1 mg PO Q4H PRN PRN Reason: ANXIETY Last Admin: 12/29/19 10:36 Dose: 1 mg Documented by: Lurasidone HCl (Latuda) 80 mg PO 1700 [facility] Last Admin: 12/29/19 17:12 Dose: 80 mg Documented by: Metoprolol Tartrate (Lopressor) 50 mg PO BID [facility] Last Admin: 12/30/19 08:02 Dose: 50 mg Documented by: Mirtazapine (Remeron) 30 mg PO BEDTIME [facility] Last Admin: 12/29/19 22:00 Dose: 30 mg Documented by: Nicotine (Nicoderm 21 Mg Patch) 1 patch TRANSDERMA DAILY PRN PRN Reason: NICOTINE WITHDRAWAL Last Admin: 12/25/19 16:06 Dose: 1 patch Documented by: Nicotine Polacrilex (Nicorette) 2 mg BUCCAL Q2H PRN PRN Reason: NICOTINE WITHDRAWAL Non-Formulary Medication (Magnesium) 500 mg PO DAILY [facility] Olanzapine (Zyprexa Zydis) 5 mg PO Q4H PRN PRN Reason: Agitation/Psychosis Last Admin: 12/28/19 13:04 Dose: 5 mg Documented by: Ondansetron HCl (Zofran) 4 mg PO Q6H PRN PRN Reason: NAUSEA AND VOMITING Trazodone HCl (Desyrel) 50 mg PO BEDTIME PRN PRN Reason: SLEEP Last Admin: 12/25/19 21:07 Dose: 50 mg Documented by: Trazodone HCl (Desyrel) 50 mg PO BEDTIME [facility] Last Admin: 12/29/19 22:01 Dose: 50 mg Documented by: Trimethoprim/Sulfamethoxazole (Bactrim Ds) 1 tab PO BID [facility]; Protocol Stop: 01/05/20 09:01 Last Admin: 12/30/19 08:01 Dose: 1 tab Documented by: Mental Status Exam MSE Comments: This is a 44-year-old female who appears older than her stated age. Mood is variable as described above. Affect is hyperbolic. Thought processes are limited but integrated and free of racing, blocking or looseness of association. Speech again is variable, sometimes chatty and conversant, at other times loud and angry. There is no pressure, dysarthria or aprosody. Cognitive functions are impaired. Sandoval transgression and inappropriate behavior are common, as is poor impulse control. She is quite anxious and wants to go back home, which disposition has failed repeatedly. Vitals/I&O/Wt Last Vital Signs Temp 98.3 F 12/30/19 06:00 Pulse 80 12/30/19 06:00 Resp 18 12/30/19 06:00 BP 88/57 12/30/19 06:00 Pulse Ox 99 12/30/19 06:00 Weight last 48 hrs Weight 188 lb Data NPU : 12/25/19 12:23 12/25/19 12:23 A&P Assessment and plan (1) Intellectual disability: The patient's placement with her parents has repeatedly failed. Guardianship has now been established and long-term placement, once she was stabilized, should be part of her disposition plan. Status: Acute Code(s): F79 - Unspecified intellectual disabilities (2) Intermittent explosive disorder: I believe that my predecessor is on the right track with diagnosis and pharmacotherapy. I will continue and and review tomorrow's valproate level. Status: Acute Code(s): F63.81 - Intermittent explosive disorder Involuntary Hold Information 96 Hour Hold: 96 Hour Involuntary Admission: Yes 96 Hour Hold Ending Date: 12/31/19 96 Hour Hold Ending Time: 12:00 Attestations NPU Medical Necessity Statement*: I anticipate 4-6 midnights additional stay Time Spent in Patient Care: Greater than 35 minutes (>than 50% of time spent in counselling and/or direct pt care on unit) . Coding Level of Care Code Acute Ssis Architect for [facility] Mercado Diagnoses Intellectual disability F79 Intermittent explosive disorder F63.81
[2019-12-30 13:34] VITALS: BP 112/71; PULSE 96; RESP 18; TEMP 36.5; O2SAT 96
[2019-12-30] MEDS: lurasidone 80 mg Tablet PO (17:33)
[2019-12-30 20:58] VITALS: BP 96/58; PULSE 84; RESP 24; TEMP 36.5; O2SAT 98
[2019-12-30] MEDS: diazePAM 5 mg Tablet 10 MG PO (21:19)
[2019-12-30] MEDS: mirtazapine 30 mg Tablet PO (21:20)
[2019-12-31 05:51] VITALS: BP 105/71; PULSE 55; RESP 16; TEMP 36.7
[2019-12-31] MEDS: levothyroxine 50 mcg Tablet PO (08:28)
[2019-12-31] MEDS: sulfamethoxazole-trimeth DS 160-800 mg Tablet 1 TAB PO ×2 (08:28→17:20)
[2019-12-31] MEDS: metoprolol tartrate 50 mg Tablet PO ×2 (08:28→17:20)
[2019-12-31] MEDS: haloperidol 1 mg Tablet 2 MG PO ×3 (08:28→21:18)
[2019-12-31] MEDS: divalproex DR 500 mg Tablet PO ×2 (08:29→17:20)
[2019-12-31] MEDS: LORazepam 1 mg Tablet PO ×2 (12:01→18:06)
--- NOTE | 2019-12-31 12:01 | PC.NURSE ---
Addendum entered by Suyapa Reyna LPN 12/31/19 13:01: MEDICATION EFFECTIVE. PATIENT IS CALM AND COOPERATIVE. Original Note: PRN ATIVAN ATIVAN 1MG PO PER PATIENT C/O ANXIETY. PATIENT VERY TEARFUL. WILL CONTINUE TO MONITOR FOR MEDICATION EFFECTIVENESS.
[2019-12-31 13:27] VITALS: BP 107/69; PULSE 86; RESP 18; TEMP 36.6; O2SAT 96
[2019-12-31] MEDS: lurasidone 80 mg Tablet PO (17:20)
--- NOTE | 2019-12-31 18:10 | PC.NURSE ---
PT GIVEN ATIVAN 1MG AFTER PACING THE HALLS, YELLING, AND BEING DISRUPTIVE, WILL MONITOR FOR DRUG EFFECTIVENESS.
--- NOTE | 2019-12-31 19:19 | PM.NPN ---
Subjective NPU Subjective: Interval history: Patient is her usual mercurial self, vacillating from white hot to calm. Right now she is peaceable but not a one of the staff can figure out why. Medications: Reviewed: Yes Medication Review Details: Current Medications Acetaminophen (Tylenol) 650 mg PO Q4H PRN PRN Reason: MILD PAIN Last Admin: 12/30/19 15:28 Dose: 650 mg Documented by: Benztropine Mesylate (Cogentin) 1 mg PO BID PRN PRN Reason: Mild Extrapyramidal symptoms Camphor/Menthol/Phenol (Blistex) 1 applic TOPICAL Q1H PRN PRN Reason: DRYNESS Diazepam (Valium) 10 mg PO BEDTIME [facility] Last Admin: 12/30/19 21:19 Dose: 10 mg Documented by: Diphenhydramine HCl (Benadryl) 50 mg IM ONCE PRN PRN Reason: Severe Extrapyramidal Symptoms Diphenhydramine HCl (Benadryl) 50 mg IM Q4H PRN PRN Reason: Severe Aggression Divalproex Sodium (Depakote Dr) 500 mg PO BID [facility] Last Admin: 12/31/19 17:20 Dose: 500 mg Documented by: Haloperidol (Haldol) 5 mg PO Q4H PRN PRN Reason: AGITATION Last Admin: 12/28/19 15:24 Dose: 5 mg Documented by: Haloperidol (Haldol) 2 mg PO TID [facility] Last Admin: 12/31/19 14:28 Dose: 2 mg Documented by: Haloperidol Lactate (Haldol Inj) 5 mg IM Q4H PRN PRN Reason: Severe Aggression Levothyroxine Sodium (Synthroid) 50 mcg PO DAILY [facility] Last Admin: 12/31/19 08:28 Dose: 50 mcg Documented by: Loperamide HCl (Imodium Capsule) 2 mg PO Q6H PRN PRN Reason: DIARRHEA Last Admin: 12/28/19 08:49 Dose: 2 mg Documented by: Lorazepam (Ativan) 1 mg PO Q4H PRN PRN Reason: ANXIETY Last Admin: 12/31/19 18:06 Dose: 1 mg Documented by: Lurasidone HCl (Latuda) 80 mg PO 1700 [facility] Last Admin: 12/31/19 17:20 Dose: 80 mg Documented by: Metoprolol Tartrate (Lopressor) 50 mg PO BID [facility] Last Admin: 12/31/19 17:20 Dose: 50 mg Documented by: Mirtazapine (Remeron) 30 mg PO BEDTIME [facility] Last Admin: 12/30/19 21:20 Dose: 30 mg Documented by: Nicotine (Nicoderm 21 Mg Patch) 1 patch TRANSDERMA DAILY PRN PRN Reason: NICOTINE WITHDRAWAL Last Admin: 12/25/19 16:06 Dose: 1 patch Documented by: Nicotine Polacrilex (Nicorette) 2 mg BUCCAL Q2H PRN PRN Reason: NICOTINE WITHDRAWAL Non-Formulary Medication (Magnesium) 500 mg PO DAILY [facility] Olanzapine (Zyprexa Zydis) 5 mg PO Q4H PRN PRN Reason: Agitation/Psychosis Last Admin: 12/28/19 13:04 Dose: 5 mg Documented by: Ondansetron HCl (Zofran) 4 mg PO Q6H PRN PRN Reason: NAUSEA AND VOMITING Trimethoprim/Sulfamethoxazole (Bactrim Ds) 1 tab PO BID [facility]; Protocol Stop: 01/05/20 09:01 Last Admin: 12/31/19 17:20 Dose: 1 tab Documented by: Mental Status Exam MSE Comments: This is a 44-year-old female who appears older than her stated age. Mood is variable as described above. Affect is hyperbolic and angry, then cheerful and friendly. Thought processes are limited but integrated and free of racing, blocking or looseness of association. Speech again is variable, sometimes chatty and conversant, at other times loud and angry. There is no pressure, dysarthria or aprosody. Cognitive functions are impaired. Archuleta transgression and inappropriate behavior are common, as is poor impulse control. She is quite anxious and wants to go back home, which disposition has failed repeatedly. Vitals/I&O/Wt Last Vital Signs Temp 97.9 F 12/31/19 13:27 Pulse 86 12/31/19 13:27 Resp 18 12/31/19 13:27 BP 107/69 12/31/19 13:27 Pulse Ox 96 12/31/19 13:27 Weight last 48 hrs Weight 188 lb Data NPU : 12/25/19 12:23 12/25/19 12:23 A&P Assessment and plan (1) Intellectual disability: This will require a structured environment and consistent staff behavior. Status: Chronic Code(s): F79 - Unspecified intellectual disabilities (2) Intermittent explosive disorder: Patient's being well treated and carefully redirected in a safe milieu Status: Chronic Code(s): F63.81 - Intermittent explosive disorder Involuntary Hold Information 96 Hour Hold: 96 Hour Involuntary Admission: Yes 96 Hour Hold Ending Date: 12/31/19 96 Hour Hold Ending Time: 12:00 Attestations NPU Medical Necessity Statement*: We need to effectuate placement. This may take 7-10 midnights. Time Spent in Patient Care: 16 - 35 minutes (>than 50% of time spent in counselling and/or direct pt care on unit). Coding Level of Care Code Acute Hedis Nurse for [facility] Diagnoses Intellectual disability F79 Intermittent explosive disorder F63.81
[2019-12-31] MEDS: diazePAM 5 mg Tablet 10 MG PO (21:17)
[2019-12-31] MEDS: mirtazapine 30 mg Tablet PO (21:18)
[2019-12-31 21:55] VITALS: BP 106/72; PULSE 85; RESP 22; TEMP 36.6; O2SAT 96
[2020-01-01 06:00] VITALS: BP 106/74; PULSE 78; RESP 20; TEMP 36.9; O2SAT 99
--- NOTE | 2020-01-01 07:26 | PM.NPN ---
Subjective NPU Subjective: Interval history: The patient is much calmer today. She understands the covid19 restrictions which are upon us and she cheerfully bumps fists , announcing that a detention has been found for her. She further asserts that she has behave herself or they will throw her out. At the very least, she will be readmitted here and we will have to aguilar for another detention. I will confer with the discharge planners to make sure her understanding is correct. Medications: Reviewed: Yes Medication Review Details: Current Medications Acetaminophen (Tylenol) 650 mg PO Q4H PRN PRN Reason: MILD PAIN Last Admin: 12/30/19 15:28 Dose: 650 mg Documented by: Benztropine Mesylate (Cogentin) 1 mg PO BID PRN PRN Reason: Mild Extrapyramidal symptoms Camphor/Menthol/Phenol (Blistex) 1 applic TOPICAL Q1H PRN PRN Reason: DRYNESS Diazepam (Valium) 10 mg PO BEDTIME [facility] Last Admin: 12/31/19 21:17 Dose: 10 mg Documented by: Diphenhydramine HCl (Benadryl) 50 mg IM ONCE PRN PRN Reason: Severe Extrapyramidal Symptoms Diphenhydramine HCl (Benadryl) 50 mg IM Q4H PRN PRN Reason: Severe Aggression Divalproex Sodium (Depakote Dr) 500 mg PO BID [facility] Last Admin: 12/31/19 17:20 Dose: 500 mg Documented by: Haloperidol (Haldol) 5 mg PO Q4H PRN PRN Reason: AGITATION Last Admin: 12/28/19 15:24 Dose: 5 mg Documented by: Haloperidol (Haldol) 2 mg PO TID [facility] Last Admin: 12/31/19 21:18 Dose: 2 mg Documented by: Haloperidol Lactate (Haldol Inj) 5 mg IM Q4H PRN PRN Reason: Severe Aggression Levothyroxine Sodium (Synthroid) 50 mcg PO DAILY [facility] Last Admin: 12/31/19 08:28 Dose: 50 mcg Documented by: Loperamide HCl (Imodium Capsule) 2 mg PO Q6H PRN PRN Reason: DIARRHEA Last Admin: 12/28/19 08:49 Dose: 2 mg Documented by: Lorazepam (Ativan) 1 mg PO Q4H PRN PRN Reason: ANXIETY Last Admin: 12/31/19 18:06 Dose: 1 mg Documented by: Lurasidone HCl (Latuda) 80 mg PO 1700 [facility] Last Admin: 12/31/19 17:20 Dose: 80 mg Documented by: Metoprolol Tartrate (Lopressor) 50 mg PO BID [facility] Last Admin: 12/31/19 17:20 Dose: 50 mg Documented by: Mirtazapine (Remeron) 30 mg PO BEDTIME [facility] Last Admin: 12/31/19 21:18 Dose: 30 mg Documented by: Nicotine (Nicoderm 21 Mg Patch) 1 patch TRANSDERMA DAILY PRN PRN Reason: NICOTINE WITHDRAWAL Last Admin: 12/25/19 16:06 Dose: 1 patch Documented by: Nicotine Polacrilex (Nicorette) 2 mg BUCCAL Q2H PRN PRN Reason: NICOTINE WITHDRAWAL Non-Formulary Medication (Magnesium) 500 mg PO DAILY [facility] Olanzapine (Zyprexa Zydis) 5 mg PO Q4H PRN PRN Reason: Agitation/Psychosis Last Admin: 12/28/19 13:04 Dose: 5 mg Documented by: Ondansetron HCl (Zofran) 4 mg PO Q6H PRN PRN Reason: NAUSEA AND VOMITING Trimethoprim/Sulfamethoxazole (Bactrim Ds) 1 tab PO BID [facility]; Protocol Stop: 01/05/20 09:01 Last Admin: 12/31/19 17:20 Dose: 1 tab Documented by: Mental Status Exam MSE Comments: The patient presents casually dressed but well-groomed and clean. Mood is cheerful and affect is appropriate. Thought processes are simple but coherent and free of racing, blocking or looseness of association. There is no evidence of psychosis, such as but not limited to hallucination, delusion or ideas of reference. Cognitive functions are limited but sufficient to function in a structured environment such as this or a well-managed detention. The patient denies any aggressive impulses or suicidal ideation. 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 I have not consulted with communications planner yet. Absent placement I anticipate 3-4 midnights. If she actually has a placement she may be able to leave in the next day or 2 Time Spent in Patient Care: Greater than 35 minutes (>than 50% of time spent in counselling and/or direct pt care on unit). Coding Level of Care Code Acute Missing Persons Investigator for Shelton Mercado Diagnoses Borderline intellectual functioning R41.83 Intermittent explosive disorder F63.81
[2020-01-01] MEDS: haloperidol 1 mg Tablet 2 MG PO ×3 (08:35→20:55)
[2020-01-01] MEDS: metoprolol tartrate 50 mg Tablet PO ×2 (08:41→18:05)
[2020-01-01] MEDS: divalproex DR 500 mg Tablet PO ×2 (08:41→18:05)
[2020-01-01] MEDS: levothyroxine 50 mcg Tablet PO (08:41)
[2020-01-01] MEDS: sulfamethoxazole-trimeth DS 160-800 mg Tablet 1 TAB PO ×2 (08:42→18:06)
[2020-01-01] MEDS: LORazepam 1 mg Tablet PO ×2 (09:06→16:25)
[2020-01-01 14:00] VITALS: BP 100/65; PULSE 86; RESP 20; TEMP 36.8; O2SAT 98
[2020-01-01] MEDS: lurasidone 80 mg Tablet PO (16:16)
[2020-01-01 20:42] VITALS: BP 105/69; PULSE 84; RESP 20; TEMP 36.7; O2SAT 98
[2020-01-01] MEDS: diazePAM 5 mg Tablet 10 MG PO (20:54)
[2020-01-01] MEDS: mirtazapine 30 mg Tablet PO (20:55)
[2020-01-02 06:00] VITALS: BP 102/75; PULSE 88; RESP 20; TEMP 36.4; O2SAT 98
--- NOTE | 2020-01-02 07:15 | PM.NPN ---
Subjective NPU Subjective: Interval history: The patient is calm today. I am able to hold a rational conversation with her. She is doing her best to avoid outbursts. She would [facility] to go [facility] the [facility]. The discharge planners are trying to arrange a long-term for her. Medications: Reviewed: Yes Medication Review Details: Current Medications Acetaminophen (Tylenol) 650 mg PO Q4H PRN PRN Reason: MILD PAIN Last Admin: 12/30/19 15:28 Dose: 650 mg Documented by: Benztropine Mesylate (Cogentin) 1 mg PO BID PRN PRN Reason: Mild Extrapyramidal symptoms Camphor/Menthol/Phenol (Blistex) 1 applic TOPICAL Q1H PRN PRN Reason: DRYNESS Diazepam (Valium) 10 mg PO BEDTIME [facility] Last Admin: 01/01/20 20:54 Dose: 10 mg Documented by: Diphenhydramine HCl (Benadryl) 50 mg IM ONCE PRN PRN Reason: Severe Extrapyramidal Symptoms Diphenhydramine HCl (Benadryl) 50 mg IM Q4H PRN PRN Reason: Severe Aggression Divalproex Sodium (Depakote Dr) 500 mg PO BID [facility] Last Admin: 01/01/20 18:05 Dose: 500 mg Documented by: Haloperidol (Haldol) 5 mg PO Q4H PRN PRN Reason: AGITATION Last Admin: 12/28/19 15:24 Dose: 5 mg Documented by: Haloperidol (Haldol) 2 mg PO TID [facility] Last Admin: 01/01/20 20:55 Dose: 2 mg Documented by: Haloperidol Lactate (Haldol Inj) 5 mg IM Q4H PRN PRN Reason: Severe Aggression Levothyroxine Sodium (Synthroid) 50 mcg PO DAILY [facility] Last Admin: 01/01/20 08:41 Dose: 50 mcg Documented by: Loperamide HCl (Imodium Capsule) 2 mg PO Q6H PRN PRN Reason: DIARRHEA Last Admin: 12/28/19 08:49 Dose: 2 mg Documented by: Lorazepam (Ativan) 1 mg PO Q4H PRN PRN Reason: ANXIETY Last Admin: 01/01/20 16:25 Dose: 1 mg Documented by: Lurasidone HCl (Latuda) 80 mg PO 1700 [facility] Last Admin: 01/01/20 16:16 Dose: 80 mg Documented by: Metoprolol Tartrate (Lopressor) 50 mg PO BID [facility] Last Admin: 01/01/20 18:05 Dose: 50 mg Documented by: Mirtazapine (Remeron) 30 mg PO BEDTIME [facility] Last Admin: 01/01/20 20:55 Dose: 30 mg Documented by: Nicotine (Nicoderm 21 Mg Patch) 1 patch TRANSDERMA DAILY PRN PRN Reason: NICOTINE WITHDRAWAL Last Admin: 12/25/19 16:06 Dose: 1 patch Documented by: Nicotine Polacrilex (Nicorette) 2 mg BUCCAL Q2H PRN PRN Reason: NICOTINE WITHDRAWAL Non-Formulary Medication (Magnesium) 500 mg PO DAILY [facility] Olanzapine (Zyprexa Zydis) 5 mg PO Q4H PRN PRN Reason: Agitation/Psychosis Last Admin: 12/28/19 13:04 Dose: 5 mg Documented by: Ondansetron HCl (Zofran) 4 mg PO Q6H PRN PRN Reason: NAUSEA AND VOMITING Trimethoprim/Sulfamethoxazole (Bactrim Ds) 1 tab PO BID [facility]; Protocol Stop: 01/05/20 09:01 Last Admin: 01/01/20 18:06 Dose: 1 tab Documented by: Mental Status Exam MSE Comments: The patient presents casually dressed but well-groomed and clean. Mood is cheerful and affect is appropriate. Thought processes are simple but coherent and free of racing, blocking or looseness of association. There is no evidence of psychosis, such as but not limited to hallucination, delusion or ideas of reference. Cognitive functions are limited but sufficient to function in a structured environment such as this or a well-managed long-term. The patient denies any aggressive impulses or suicidal ideation. Vitals/I&O/Wt Last Vital Signs Temp 97.6 F 01/02/20 06:00 Pulse 88 01/02/20 06:00 Resp 20 H 01/02/20 06:00 BP 102/75 01/02/20 06:00 Pulse Ox 98 01/02/20 06:00 Data NPU : 12/25/19 12:23 12/25/19 12:23 A&P Assessment and plan (1) Intermittent explosive disorder: The patient seems to have calmed down and we are not confronted with eruptions of late. Status: Chronic Code(s): F63.81 - Intermittent explosive disorder (2) Borderline intellectual functioning: Careful redirection and patient explanations seem to suffice these days. Status: Chronic Code(s): R41.83 - Borderline intellectual functioning Involuntary Hold Information 96 Hour Hold: 96 Hour Involuntary Admission: Yes 96 Hour Hold Ending Date: 12/31/19 96 Hour Hold Ending Time: 12:00 Attestations NPU Medical Necessity Statement*: I anticipate 2-3 midnights pending acquisition of a long-term bed. Coding Level of Care Code Acute Installation Helper for [facility] Fwd Diagnoses Intermittent explosive disorder F63.81 Borderline intellectual functioning R41.83
[2020-01-02] MEDS: divalproex DR 500 mg Tablet PO (08:01)
[2020-01-02] MEDS: levothyroxine 50 mcg Tablet PO (08:01)
[2020-01-02] MEDS: sulfamethoxazole-trimeth DS 160-800 mg Tablet 1 TAB PO (08:02)
[2020-01-02] MEDS: metoprolol tartrate 50 mg Tablet PO (08:02)
[2020-01-02] MEDS: haloperidol 1 mg Tablet 2 MG PO (08:02)
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
--- NOTE | 2020-01-02 10:55 | PC.SOCIAL ---
Medicaid trip ID #[id number], called at 10:55am, should arrive by 1:55pm but due to the length of the trip may take slightly longer to find shuttle bus driver.
[2020-01-02 11:10] VITALS: BP 102/75; PULSE 88; RESP 20; TEMP 36.4; O2SAT 98
[2020-01-02 11:28] VITALS: BP 102/75; PULSE 88; RESP 20; TEMP 36.4; O2SAT 98
[2020-01-02] MEDS: acetaminophen 325 mg Tablet 650 MG PO (12:45)
== END 2020-01-02 13:52 | disposition other institution (70) | DRG 883 ==
LOC: ER 12:40 → NP 14:37
PROVIDERS: Admitting Provider Psychiatry & Neurology Psychiatry; Emergency Provider Family Medicine; PCP Nurse Practitioner Family; Visit Provider Psychiatry & Neurology Psychiatry
DX: F63.81 Intermittent explosive disorder (principal); R41.83 Borderline intellectual functioning; F17.210 Nicotine dependence, cigarettes, uncomplicated; Z79.890 Hormone replacement therapy; Z79.84 Long term (current) use of oral hypoglycemic drugs; Z79.899 Other long term (current) drug therapy
CPT/HCPCS: 12345; 36415; 70450; 71110; 72125; 80053; 80164; 80178; 80306; 80307; 81001; 81025; 85025; 87077; 87086; 87186; 96372; 99284; J2060

== ENCOUNTER 2019-12-25 12:34 | Emergency (ER) | payer MEDICAID, SELFPAY | END 2019-12-25 15:05 | disposition admitted as inpatient to this hospital (09) | LOC: ER 01-03 16:45 | PROVIDERS: Emergency Provider Family Medicine; PCP Nurse Practitioner Family | DX: Z76.89 Persons encountering health services in other specified circumstances (principal) | CPT/HCPCS: 36415; 70450; 71110; 72125; 80053; 80306; 80307; 81001; 81025; 85025; 87077; 87086; 87186; 99284; 99285 ==